=== PATIENT | female | born 1975 | race Caucasian/White ===

== ENCOUNTER 2016-12-03 08:08 | Emergency (ER) | payer BC ==
[~2016-12-03] VITALS: Wt 73.5 kg
[~2016-12-03 08:08] MED LIST: HYDR-3498 PO; IBUP-1542 PO; IBUP200C11 PO; ZOF8 PO
[2016-12-03] MEDS ORDERED: IBUPROFEN 600 MG TAB PO ONE (09:00)
--- NOTE | 2016-12-03 09:38 | RADRPT ---
PROCEDURE: XR right ankle. CLINICAL INDICATION: Ankle pain TECHNIQUE: Three views are available for review. COMPARISON: None available FINDINGS: There is a 6 mm inferior calcaneal spur. The osseous structures are otherwise normal mineralization, architecture and alignment. No fracture or osseous lesion is identified. The joints are unremarkable. The soft tissues are unremarkable. IMPRESSION: 6 mm inferior calcaneal spur. RPTAT: HGDB .Efren Amador MD, Date Time Electronically viewed and signed by .Efren Amador MD, on 12/03/2016 09:37 .B/
[2016-12-03] MEDS ORDERED: NAPR-260 PO (09:48)
--- NOTE | 2016-12-03 10:35 | ERD ---
ER Documentation Chief Complaint Date/Time DATE: 12/03/16 TIME: 10:34 Chief Complaint right ankle pain non trauma, no bruising no deformity HPI 40-year-old female complains of right anterior medial ankle pain for the past week, after going to [place]. Patient states that she has had a fracture in her left ankle just wanted to be sure and is wanting x-rays at this time. She does not have any pain unless she moves the ankle, or weight-bear as numbness, pain is nonradiating, mild to moderate. ROS All systems reviewed and are negative except as per history of present illness. Medications Home Meds Active Scripts Naproxen* (Naprosyn*) 500 Mg Tablet, 500 MG PO BID Y for PAIN AND/OR INFLAMMATION, #30 TAB Prov:GUADALUPE GUEVARA PA-C 12/03/16 Ibuprofen* (Motrin*) 600 Mg Tab, 600 MG PO Q6, #30 TAB Prov:GUADALUPE GUEVARA PA-C 06/12/16 Hydrocodone Bit-Acetaminophen* ([place]*) 5-325 Mg Tab, 10 TAB PO Q6 Y for PAIN, # 7 TAB Prov:GUADALUPE GUEVARA PA-C 06/12/16 Hydrocodone Bit-Acetaminophen* ([place]*) 5-325 Mg Tab, 1 TAB PO Q6 Y for PAIN, # 20 TAB Prov:HARRISON BEATTY NP 05/28/16 Ondansetron Hcl* (Zofran* ODT) 8 mg -ODT Tab.disper, 8 MG PO Q6 Y for NAUSEA AND /OR VOMITING, #14 TAB or tabs ok Prov:KATLYN REED MD 04/14/15 Reported Medications Ibuprofen* (Advil*) 200 Mg Capsule, 200 MG PO Q6H Y for PAIN, CAP 02/13/15 Allergies Allergies: Coded Allergies: No Known Allergies (Verified Allergy, Mild, 11/12/12) PMhx/Soc History of Surgery: Yes (BILAT TUBULAGATION) Anesthesia Reaction: No Hx Neurological Disorder: Yes (MIGRAINES ) Hx Respiratory Disorders: No Hx Cardiac Disorders: No Hx Psychiatric Problems: Yes (ANXIETY ) Hx Miscellaneous Medical Probl: Yes (HIGH CHOLESTEROL, PRE DM) Hx Alcohol Use: No Hx Substance Use: No Hx Tobacco Use: No Smoking Status: Never smoker Physical Exam Vitals Vital Signs Date Time Temp Pulse Resp B/P Pulse Ox O2 Delivery O2 Flow Rate FiO2 12/03/16 08:18 98.1 87 21 137/84 98 Physical Exam \General: Well-developed, well-nourished. The patient appears in no acute distress. HEENT: Head is normocephalic, atraumatic. No scleral icterus. Neck: Supple. Nontender. Lungs: Clear to auscultation. Normal air movement. Heart: Regular rate and rhythm. S1 and S2 are normal. No murmurs, gallops, or rubs. Abdomen: Nondistended. Extremities: No bony deformities, no ecchymosis, pulses 2+ bilaterally, no erythema, warmth. Neurologic: Alert and oriented 3. No focal deficits. Skin: Normal turgor. No rash or lesions. Results 24 hrs Current Medications Medications (Trade) Dose Ordered Sig/Keny Route PRN Reason Start Time Stop Time Status Last Admin Dose Admin Ibuprofen (Motrin) 600 mg ONCE ONCE PO 12/03/16 09:00 12/03/16 09:01 DC 12/03/16 09:03 PROCEDURE: XR right ankle. CLINICAL INDICATION: Ankle pain TECHNIQUE: Three views are available for review. COMPARISON: None available FINDINGS: There is a 6 mm inferior calcaneal spur. The osseous structures are otherwise normal mineralization, architecture and alignment. No fracture or osseous lesion is identified. The joints are unremarkable. The soft tissues are unremarkable. IMPRESSION: 6 mm inferior calcaneal spur. RPTAT: HGDB .Efren Amador MD, Date Time Electronically viewed and signed by .Efren Amador MD, on 12/03/2016 09:37 .B/ CC: GUADALUPE UGEVARA PA-C Procedures/MDM ED course: Patient was given Motrin for pain. Right ankle was wrapped in Napoleon bandage. Splint Assessment: Neurovascularly intact post splint placement with good fit. MDM: 38-year-old female comes in with a right ankle sprain. No evidence of fracture, subluxation, evidence of infectious origin or neurovascular compromise. Departure Diagnosis: Primary Impression: Ankle pain Condition: Good Patient Instructions: Sprain, Ankle, With X-Ray GUADALUPE GUEVARA PA-C Dec 03, 2016 10:35
== END 2016-12-03 10:01 | disposition home or self-care (01) ==
LOC: FTE 08:08
DX: M25.571 Pain in right ankle and joints of right foot (principal)
CPT/HCPCS: 73610; 99283; Z7610

== ENCOUNTER 2017-04-24 08:01 | Emergency (ER) | payer BC ==
[~2017-04-24] VITALS: Ht 144.8 cm; Wt 79.0 kg
[~2017-04-24 08:01] MED LIST changes: +NAPR-260 PO
[2017-04-24 08:08] VITALS: Ht 144.8 cm; Wt 79.0 kg
--- NOTE | 2017-04-24 10:00 | RADRPT ---
PROCEDURE: Right hip series CLINICAL INDICATION: hip injury TECHNIQUE: AP and frog lateral views of the right hip were performed. COMPARISON: None. FINDINGS: There is no evidence of acute fractures or dislocations. The bony mineralization is normal. No foc al bony blastic or lytic lesions. There are vascular calcifications present. IMPRESSION: No evidence of fracture or dislocation. RPTAT:AAJJ Physician Holli Date Time Electronically viewed and signed by Alfa Galeano Physician on 04/24/2017 10:00 /
[2017-04-24] MEDS ORDERED: IBUP-1542 PO (10:54)
[2017-04-24 11:51] VITALS: BP 138/77; PULSE 80; RESP 16; TEMP 98.3
--- NOTE | 2017-04-24 17:52 | ERD ---
ER Documentation Chief Complaint Date/Time DATE: 04/24/17 TIME: 17:48 Chief Complaint BIB SELF C/O LOWER BACK PAIN PAIN R LEG S/P SLIP AND FALL ON SUNDAY HPI 41-year-old female patient with no significant past medical history presents to the ED complaining of a accidental slip and fall that occurred 3 days ago. Patient reports that she was on a skateboard and accidentally tripped and fell injuring her lower back and right hip area. States that the pain feels achy and rates it a 7 out of 10. Reports that she landed on her buttocks. Denies any saddle anesthesia, urine or bowel incontinence, urinary retention, fever, chills, abdominal pain, nausea, vomiting, chest pain, shortness of breath. Denies any head or neck injuries. Denies any loss of consciousness. ROS All systems reviewed and are negative except as per history of present illness. Medications Home Meds Active Scripts Ibuprofen* (Motrin*) 600 Mg Tab, 600 MG PO Q6, #30 TAB Prov:JOSE HOWARD PA-C 04/24/17 Naproxen* (Naprosyn*) 500 Mg Tablet, 500 MG PO BID Y for PAIN AND/OR INFLAMMATION, #30 TAB Prov:GUADALUPE GUEVARA PA-C 12/03/16 Ibuprofen* (Motrin*) 600 Mg Tab, 600 MG PO Q6, #30 TAB Prov:GUADALUPE GUEVARA PA-C 06/12/16 Hydrocodone Bit-Acetaminophen* ([place]*) 5-325 Mg Tab, 10 TAB PO Q6 Y for PAIN, # 7 TAB Prov:GUADALUPE GUEVARA PA-C 06/12/16 Hydrocodone Bit-Acetaminophen* ([place]*) 5-325 Mg Tab, 1 TAB PO Q6 Y for PAIN, # 20 TAB Prov:HARRISON BEATTY NP 05/28/16 Ondansetron Hcl* (Zofran* ODT) 8 mg -ODT Tab.disper, 8 MG PO Q6 Y for NAUSEA AND /OR VOMITING, #14 TAB or tabs ok Prov:KATLYN REED MD 04/14/15 Reported Medications Ibuprofen* (Advil*) 200 Mg Capsule, 200 MG PO Q6H Y for PAIN, CAP 02/13/15 Allergies Allergies: Coded Allergies: No Known Allergies (Verified Allergy, Mild, 04/24/17) PMhx/Soc History of Surgery: Yes (BILAT TUBULAGATION) Anesthesia Reaction: No Hx Neurological Disorder: Yes (MIGRAINES ) Hx Respiratory Disorders: No Hx Cardiac Disorders: No Hx Psychiatric Problems: Yes (ANXIETY ) Hx Miscellaneous Medical Probl: Yes (HIGH CHOLESTEROL, PRE DM) Hx Alcohol Use: No Hx Substance Use: No Hx Tobacco Use: No Smoking Status: Never smoker Physical Exam Vitals Vital Signs Date Time Temp Pulse Resp B/P Pulse Ox O2 Delivery O2 Flow Rate FiO2 04/24/17 11:51 98.3 80 16 138/77 98 Room Air 04/24/17 08:08 96.6 94 18 137/76 98 Physical Exam Const: [id number], well-nourished. In no acute distress. Head: Atraumatic, normocephalic Eyes: Normal Conjunctiva without injection. No purulent discharge. PERRLA. EOMI ENT: Normal external ear. Ear canal without erythema. Tympanic membrane pearly rincon without effusion or bulging. Nasal canal clear with normal turbinates. Moist oropharynx without tonsillar exudates. Non-erythematous pharynx. Uvula midline. No drooling. No trismus. Neck: No cervical midline tenderness. Full range of motion. No meningismus. No cervical lymphadenopathy. No JVD. Resp: Clear to auscultation bilaterally. No wheezing, rhonchi, rales, or crackles. No accessory muscle use. No retractions. Cardio: Regular rate and rhythm. No murmurs, rubs or gallops. Abd: Soft, non tender, non distended. Normal bowel sounds. No palpable masses. No rebound tenderness. No guarding. Negative McBurney's Point. Negative Rhodes's Sign. Skin: Normal skin turgor. No petechiae or rashes Back: No midline tenderness. No CVA tenderness. Ext: No cyanosis, or edema. Distal pulses intact bilaterally. Right hip pain. Patient was able to internally and externally rotate right hip. All other extremities have full range of motion. Neur: Awake and alert. Normal gait. Normal coordination. Cranial Nerves II- VII intact. Normal finger to nose. Muscle strength 5/5. Sensation intact. Psych: Normal Mood and Affect Procedures/MDM 41-year-old female patient with no significant past medical history presents the ED complaining of a back injury after skateboarding 3 days ago. Patient is afebrile and nontoxic-appearing. Patient has normal vital signs. Patient had no lumbar midline tenderness, therefore there is no need for a lumbar x-ray. Patient did however state that her right hip was painful and had tenderness to palpation as well as pain with internal and external rotation. Patient was given Toradol here in the ED with improvement of her symptoms. Negative urine . PROCEDURE: Right hip series CLINICAL INDICATION: hip injury TECHNIQUE: AP and frog lateral views of the right hip were performed. COMPARISON: None. FINDINGS: There is no evidence of acute fractures or dislocations. The bony mineralization is normal. No focal bony blastic or lytic lesions. There are vascular calcifications present. IMPRESSION: No evidence of fracture or dislocation. Patient is ambulating here in the ED without difficulty. Denies saddle anesthesia, numbness or tingling, urine or bowel incontinence, weakness. Low suspicion for cauda equina syndrome, cord compression, nephrolithiasis, aortic aneurysm, aortic dissection, epidural abscess, spinal hematoma, malignancy, pyelonephritis, or other emergent conditions. Discharge medications: Ibuprofen Follow up with primary care physician in 1-2 days. Instructed patient to return to the ED sooner for any worsening symptoms. Patient's questions were answered. Patient understood and agreed with discharge plan. Patient discharged stable. Departure Diagnosis: Primary Impression: Fall Encounter type: initial encounter Qualified Code: W19.XXXA - Fall, initial encounter Condition: Stable Patient Instructions: Back Pain (Acute Or Chronic), Fall, Mechanical, Hip Contusion Referrals: [facility] YOU HAVE RECEIVED A MEDICAL SCREENING EXAM AND THE RESULTS INDICATE THAT YOU DO NOT HAVE A CONDITION THAT REQUIRES URGENT TREATMENT IN THE EMERGENCY DEPARTMENT. FURTHER EVALUATION AND TREATMENT OF YOUR CONDITION CAN WAIT UNTIL YOU ARE SEEN IN YOUR DOCTORS OFFICE WITHIN THE NEXT 1-2 DAYS. IT IS YOUR RESPONSIBILITY TO MAKE AN APPOINTMENT FOR FOLOW-UP CARE. IF YOU HAVE A PRIMARY DOCTOR --you should call your primary doctor and schedule an appointment IF YOU DO NOT HAVE A PRIMARY DOCTOR YOU CAN CALL OUR PHYSICIAN REFERRAL HOTLINE AT IF YOU CAN NOT AFFORD TO SEE A PHYSICIAN YOU CAN CHOSE FROM THE FOLLOWING [facility] [address]. [facility] [address] [facility] [address] [facility] [address] [facility] [address] [facility]. [facility] [address] [facility]. [facility] YOU HAVE RECEIVED A MEDICAL SCREENING EXAM AND THE RESULTS INDICATE THAT YOU DO NOT HAVE A CONDITION THAT REQUIRES URGENT TREATMENT IN THE EMERGENCY DEPARTMENT. FURTHER EVALUATION AND TREATMENT OF YOUR CONDITION CAN WAIT UNTIL YOU ARE SEEN IN YOUR DOCTORS OFFICE WITHIN THE NEXT 1-2 DAYS. IT IS YOUR RESPONSIBILITY TO MAKE AN APPOINTMENT FOR FOLOW-UP CARE. IF YOU HAVE A PRIMARY DOCTOR --you should call your primary doctor and schedule and appointment IF YOU DO NOT HAVE A PRIMARY DOCTOR YOU CAN CALL OUR PHYSICIAN REFERRAL HOTLINE AT . IF YOU CAN NOT AFFORD TO SEE A PHYSICIAN YOU CAN CHOSE FROM THE FOLLOWING [facility] INSTITUTIONS: [facility] [address] [place] [address] [facility] [address] [place] [address] [facility] [address] [place] [address] [facility] URGENT CARE/SPECIALTIES Additional Instructions: Call your primary care doctor TOMORROW for an appointment during the next 2-3 days.See the doctor sooner or return here if your condition worsens before your appointment time. JOSE HOWARD PA-C Apr 24, 2017 17:52
== END 2017-04-24 11:53 | disposition home or self-care (01) ==
LOC: FTE 08:01
DX: S39.92XA Unspecified injury of lower back, initial encounter (principal); S89.91XA Unspecified injury of right lower leg, initial encounter; S79.911A Unspecified injury of right hip, initial encounter; W01.0XXA Fall on same level from slipping, tripping and stumbling without subsequent striking against object, initial encounter; Y92.9 Unspecified place or not applicable
CPT/HCPCS: 73510

== ENCOUNTER 2017-05-20 19:44 | Emergency (ER) | payer BC ==
[~2017-05-20] VITALS: Ht 144.8 cm; Wt 79.0 kg
[2017-05-20 19:48] VITALS: Ht 144.8 cm; Wt 79.0 kg
[2017-05-20] MEDS ORDERED: HYDROCODONE/APAP (5/325) TAB PO ONE (20:30)
[2017-05-20 21:21] LABS: ADD SCAN DIFF NO
[2017-05-20 21:28] LABS: HEMATOCRIT 38.3 % (37.0-47.0); HEMOGLOBIN 12.6 g/dl (12.0-16.0); MEAN CORPUSCULAR HEMOGLOBIN 28.1 pg (29.0-33.0); MEAN CORPUSCULAR HGB CONC 32.9 g/dl (32.0-37.0); MEAN CORPUSCULAR VOLUME 85.5 fl (82.0-101.0); MEAN PLATELET VOLUME 9.9 fl (7.4-10.4); PLATELET COUNT 377 10^3/UL (140-415); RED BLOOD COUNT 4.48 10^6/ul (4.20-5.40); WHITE BLOOD COUNT 11.8 10^3/ul (4.8-10.8)
--- NOTE | 2017-05-20 21:28 | ERD ---
ER Documentation Chief Complaint Date/Time DATE: 05/20/17 TIME: 21:25 Chief Complaint PT REPORTS SHE GOT HER PERIOD AFTER A YEAR AND IS HAVING AP & BACK PAIN HPI This is a 41-year-old female presents to the ER stating that she got her period after 1 year of not having her period. Patient states that she has had heavy bleeding and severe pelvic pain with lower back pain for the last 3 days. Patient denies any vaginal discharge, she denies any urinary frequency or dysuria. Patient denies any trauma to the back. She denies any urinary bowel incontinence. She denies any saddle like anesthesia. Patient denies any other abdominal pain. She denies any nausea vomiting or diarrhea. Pelvic pain is severe, and crampy in nature. Patient has been taking ibuprofen for the pain however it has not helped her. ROS 12 point review of systems was done, all negative except per HPI. Medications Home Meds Active Scripts Hydrocodone/Acetaminophen ([place] 5-325 Tablet) 1 Each Tablet, 1 TAB PO Q6H Y for PAIN, #20 TAB Prov:VIET VELOZ 05/20/17 Ibuprofen* (Motrin*) 600 Mg Tab, 600 MG PO Q6, #30 TAB Prov:JOSE HOWARD PA-C 04/24/17 Naproxen* (Naprosyn*) 500 Mg Tablet, 500 MG PO BID Y for PAIN AND/OR INFLAMMATION, #30 TAB Prov:GUADALUPE GUEVARA PA-C 12/03/16 Ibuprofen* (Motrin*) 600 Mg Tab, 600 MG PO Q6, #30 TAB Prov:GUADALUPE GUEVARA PA-C 06/12/16 Hydrocodone Bit-Acetaminophen* ([place]*) 5-325 Mg Tab, 10 TAB PO Q6 Y for PAIN, # 7 TAB Prov:GUADALUPE GUEVARA PA-C 06/12/16 Hydrocodone Bit-Acetaminophen* ([place]*) 5-325 Mg Tab, 1 TAB PO Q6 Y for PAIN, # 20 TAB Prov:HARRISON BEATTY NP 05/28/16 Ondansetron Hcl* (Zofran* ODT) 8 mg -ODT Tab.disper, 8 MG PO Q6 Y for NAUSEA AND /OR VOMITING, #14 TAB or tabs ok Prov:KATLYN REED MD 04/14/15 Reported Medications Ibuprofen* (Advil*) 200 Mg Capsule, 200 MG PO Q6H Y for PAIN, CAP 02/13/15 Allergies Allergies: Coded Allergies: No Known Allergies (Verified Allergy, Mild, 04/24/17) PMhx/Soc History of Surgery: Yes (BILAT TUBULAGATION) Anesthesia Reaction: No Hx Neurological Disorder: Yes (MIGRAINES ) Hx Respiratory Disorders: No Hx Cardiac Disorders: No Hx Psychiatric Problems: Yes (ANXIETY ) Hx Miscellaneous Medical Probl: Yes (HIGH CHOLESTEROL, PRE DM) Hx Alcohol Use: No Hx Substance Use: No Hx Tobacco Use: No Smoking Status: Never smoker Physical Exam Vitals Vital Signs Date Time Temp Pulse Resp B/P Pulse Ox O2 Delivery O2 Flow Rate FiO2 05/20/17 19:48 98.7 88 16 123/83 95 Physical Exam GENERAL: The patient is well developed and appropriate for usual state of health , in no apparent distress. HEENT: Atraumatic. CHEST: Clear to auscultation bilaterally. There are no rales, wheezes or rhonchi. HEART: Regular rate and rhythm. No murmurs, clicks, rubs or gallops. ABDOMEN: Soft, nontender and nondistended. Good bowel sounds. No rebound or guarding. No gross peritonitis. No gross organomegaly or masses. No Rhodes sign or McBurney point tenderness. patient is ttp over the pelvic area. BACK: No midline or flank tenderness. NEURO: Alert and oriented. SKIN: The skin is warm and dry. Result Diagram: 05/20/17203905/20/172039 Results 24 hrs Laboratory Tests Test 05/20/17 20:40 White Blood Count 11.810^3/ul Red Blood Count 4.4810^6/ul Hemoglobin 12.6g/dl Hematocrit 38.3% Mean Corpuscular Volume 85.5fl Mean Corpuscular Hemoglobin 28.1pg Mean Corpuscular Hemoglobin Concent 32.9g/dl Red Cell Distribution Width 13.0% Platelet Count 73075^3/UL Mean Platelet Volume 9.9fl Neutrophils % 41.0% Lymphocytes % 51.0% Monocytes % 5.0% Eosinophils % 3.0% Neutrophils # 4.810^3/ul Lymphocytes # 6.010^3/ul Monocytes # 0.610^3/ul Eosinophils # 0.410^3/ul Urine Color RED Urine Clarity CLOUDY Urine pH 6.0 Urine Specific Ariel 1.022 Urine Ketones NEGATIVEmg/dL Urine Nitrite NEGATIVEmg/dL Urine Bilirubin NEGATIVEmg/dL Urine Urobilinogen NEGATIVEmg/dL Urine Leukocyte Esterase TRACELeu/ul Urine Microscopic RBC > 182/HPF Urine Microscopic WBC 36/HPF Urine Hemoglobin 3+mg/dL Urine Glucose 3+mg/dL Urine Total Protein 2+mg/dl Sodium Level 139mmol/L Potassium Level 4.0mmol/L Chloride Level 101mmol/L Carbon Dioxide Level 23mmol/L Anion Gap 19 Blood Urea Nitrogen 13mg/dl Creatinine 0.67mg/dl Glucose Level 238mg/dl Calcium Level 9.5mg/dl Total Bilirubin 0.0mg/dl Direct Bilirubin 0.00mg/dl Indirect Bilirubin 0.0mg/dl Aspartate Amino Transf (AST/SGOT) 27IU/L Alanine Aminotransferase (ALT/SGPT) 36IU/L Alkaline Phosphatase 143IU/L Total Protein 8.5g/dl Albumin 4.6g/dl Globulin 3.90g/dl Albumin/Globulin Ratio 1.17 Current Medications Medications (Trade) Dose Ordered Sig/Keny Route PRN Reason Start Time Stop Time Status Last Admin Dose Admin Acetaminophen/ Hydrocodone Bitart ([place] (5/325)) 1 tab ONCE ONCE PO 05/20/17 20:30 05/20/17 20:31 DC 05/20/17 20:49 Procedures/MDM This is a 41-year-old female presents to the ER with heavy. And pelvic with back pain. At this time etiology of vaginal bleeding is unknown. Patient however was advised to see her OB as she has not had a period for a year, this could be postmenopausal bleeding at which point malignancy cannot be ruled out. There is no evidence of ovarian torsion or ovarian cysts. Patient is hemodynamically stable with no evidence of anemia. Suspicion for PID is low as patient does not have any vaginal discharge. Patient will be sent home with [place]. She is to follow-up with her primary care doctor within 1-2 days return to ER sooner if symptoms worsen. My medical decision making sure with the patient understands and agrees with plan. Patient's blood sugar was elevated, discussed this finding with patient and advised her to get follow-up to rule out diabetes. Departure Diagnosis: Primary Impression: Vaginal bleeding Condition: Stable VIET VELOZ May 20, 2017 21:28
--- NOTE | 2017-05-20 21:29 | RADRPT ---
PROCEDURE: US Pelvis. CLINICAL INDICATION: Abnormal vaginal bleeding. TECHNIQUE: The pelvis was evaluated with transabdominal and transvaginal sonography in the axial a nd sagittal planes. COMPARISON: No prior study is available for comparison. FINDINGS: Uterus: 8.4 x 6.0 x 2.5 cm. Endometrium: 5.1 mm. Right ovary: 2.5 x 1.7 x 2.1 cm. Left ovary: 3.1 x 2.0 x 2.7 cm. Uterine masses: None. Ovarian masses: None. Color Doppler and pulsed Doppler sonography demonstrate normal flow to the ova chelsey. Other pelvic masses: None. Free fluid: None. IMPRESSION: 1. Normal pelvic ultrasound. RPTAT: QQ .Maldonado Jimenez MD, MD Date Time Electronically viewed and signed by .Maldonado Jimenez MD, on 05/20/2017 21:29 .R/
[2017-05-20 21:39] LABS: ADD UMIC YES; UR ASCORBIC ACID NEGATIVE (NEGATIVE); UR BILIRUBIN (Dip) NEGATIVE (NEGATIVE); UR BLOOD (Dip) 3+ mg/dL (NEGATIVE); UR CLARITY CLOUDY (CLEAR); UR COLOR RED (YELLOW); UR GLUCOSE (Dip) 3+ mg/dL (NEGATIVE); UR KETONES (Dip) NEGATIVE (NEGATIVE); UR LEUKOCYTE ESTERASE (Dip) TRACE Leu/ul (NEGATIVE); UR NITRITE (Dip) NEGATIVE (NEGATIVE); UR RBC > 182 /HPF (0-5); UR SPECIFIC GRAVITY (Dip) 1.022 (1.003-1.030); UR TOTAL PROTEIN (Dip) 2+ mg/dl (NEGATIVE); UR UROBILINOGEN (Dip) NEGATIVE (NEGATIVE)
[2017-05-20 21:51] LABS: ALBUMIN 4.6 g/dl (3.3-4.9); ALBUMIN/GLOBULIN RATIO 1.17; CALCIUM 9.5 mg/dl (8.4-10.2); CREATININE 0.67 mg/dl (0.44-1.00); TOTAL PROTEIN 8.5 g/dl (6.1-8.1)
[2017-05-20 21:54] LABS: EOSINOPHILS # 0.4 10^3/ul (0.0-0.5); MONOCYTE # 0.6 10^3/ul (0.3-0.9); NEUTROPHIL # 4.8 10^3/ul (1.6-7.5)
--- NOTE | 2017-05-20 22:14 | RADRPT ---
PROCEDURE: XR Lumbar Spine. CLINICAL INDICATION: Back pain. TECHNIQUE: Three views. AP, lateral and cone-down lateral view of the lumbar spine were obtained. COMPARISON: No prior studies are available for comparison. FINDINGS: There is normal stature and alignment of the vertebrae. There is no fracture. There is no lytic or blastic lesion. The disk height is normal. Small osteophytes are present throughout. The paravertebral soft tissues are unremarkable. IMPRESSION: 1. Mild degenerative change. 2. Otherwise unremarkable images of the lumbar spine. RPTAT: QQ .Maldonado Jimenez MD, MD Date Time Electronically viewed and signed by .Maldonado Jimenez MD, on 05/20/2017 22:14 .R/
[2017-05-20] MEDS ORDERED: HYDR-906 PO (22:17)
[2017-05-20 22:30] VITALS: BP 137/88; PULSE 83; RESP 20
== END 2017-05-20 22:31 | disposition home or self-care (01) ==
LOC: FTE 19:44
DX: N93.9 Abnormal uterine and vaginal bleeding, unspecified (principal); R10.2 Pelvic and perineal pain
CPT/HCPCS: 72100; 76856; 80053; 81001; 85025; 99285; Z7610

== ENCOUNTER 2017-06-26 13:15 | Emergency (ER) | payer BC ==
[~2017-06-26] VITALS: Ht 152.4 cm; Wt 78.5 kg
[~2017-06-26 13:15] MED LIST changes: +HYDR-906 PO
[2017-06-26 13:23] VITALS: Ht 152.4 cm; Wt 78.5 kg
--- NOTE | 2017-06-26 14:19 | ERA ---
ER Documentation Chief Complaint Date/Time DATE: 06/26/17 TIME: 14:18 Chief Complaint FEELS DIZZY SINCE SUNDAY HPI The patient is a 41-year-old female, presenting to the ER because of acute dizziness, nausea and vomiting mostly mucus for 3 days. She recently increased her metformin 500 mg twice daily for the last 4 days, denies syncope, near syncope, vertigo, neck pain, chest pain, dyspnea, abdominal pain. She does not smoke nor drink Past medical history: Migraine, anxiety, dyslipidemia, diabetes mellitus Past surgical history: Tubal ligation ROS All systems reviewed and are negative except as per history of present illness. Medications Home Meds Active Scripts Meclizine Hcl* (Meclizine Hcl*) 25 Mg Tablet, 25 MG PO TID, #14 TAB Prov:DRU BLEVINS MD 06/26/17 Sulfamethoxazole/Trimethoprim* (Bactrim Ds* Tablet) 1 Each Tablet, 1 TAB PO BID , #14 TAB Prov:DRU BLEVINS MD 06/26/17 Hydrocodone/Acetaminophen ([place] 5-325 Tablet) 1 Each Tablet, 1 TAB PO Q6H Y for PAIN, #20 TAB Prov:VIET VELOZ 05/20/17 Ibuprofen* (Motrin*) 600 Mg Tab, 600 MG PO Q6, #30 TAB Prov:JOSE HOWARD PA-C 04/24/17 Naproxen* (Naprosyn*) 500 Mg Tablet, 500 MG PO BID Y for PAIN AND/OR INFLAMMATION, #30 TAB Prov:GUADALUPE GUEVARA PA-C 12/03/16 Ibuprofen* (Motrin*) 600 Mg Tab, 600 MG PO Q6, #30 TAB Prov:GUADALUPE GUEVARA PA-C 06/12/16 Hydrocodone Bit-Acetaminophen* ([place]*) 5-325 Mg Tab, 10 TAB PO Q6 Y for PAIN, # 7 TAB Prov:GUADALUPE GUEVARA PA-C 06/12/16 Hydrocodone Bit-Acetaminophen* ([place]*) 5-325 Mg Tab, 1 TAB PO Q6 Y for PAIN, # 20 TAB Prov:HARRISON BEATTY NP 05/28/16 Ondansetron Hcl* (Zofran* ODT) 8 mg -ODT Tab.disper, 8 MG PO Q6 Y for NAUSEA AND /OR VOMITING, #14 TAB or tabs ok Prov:KATLYN REED MD 04/14/15 Reported Medications Ibuprofen* (Advil*) 200 Mg Capsule, 200 MG PO Q6H Y for PAIN, CAP 02/13/15 Allergies Allergies: Coded Allergies: No Known Allergies (Verified Allergy, Mild, 04/24/17) PMhx/Soc History of Surgery: Yes (BILAT TUBULAGATION) Anesthesia Reaction: No Hx Neurological Disorder: Yes (MIGRAINES ) Hx Respiratory Disorders: No Hx Cardiac Disorders: No Hx Psychiatric Problems: Yes (ANXIETY ) Hx Miscellaneous Medical Probl: Yes (HIGH CHOLESTEROL, PRE DM) Hx Alcohol Use: No Hx Substance Use: No Hx Tobacco Use: No Physical Exam Vitals Vital Signs Date Time Temp Pulse Resp B/P Pulse Ox O2 Delivery O2 Flow Rate FiO2 06/26/17 13:23 98.1 86 18 142/83 99 Physical Exam Const: No acute distress. Head: Atraumatic. Eyes: Normal Conjunctiva. ENT: Normal External Ears, Nose and Mouth. Neck: Full range of motion. No meningismus. Resp: Clear to auscultation bilaterally. Cardio: Regular rate and rhythm. Abd: Soft, non distended, normal bowel sounds, non tender. Skin: No petechiae or rashes. Back: No midline or flank tenderness. Ext: No cyanosis, or edema. Neur: Awake and alert. No focal deficit Psych: Normal Mood and Affect. Results 24 hrs Laboratory Tests Test 06/26/17 14:45 06/26/17 15:39 Bedside Urine pH (LAB) 5.5 Bedside Urine Protein (LAB) Negative Bedside Urine Glucose (UA) 0.25% Bedside Urine Ketones (LAB) Negative Bedside Urine Blood Trace-lysed Bedside Urine Nitrite (LAB) Negative Bedside Urine Leukocyte Esterase (L 2+ Bedside Glucose 126mg/dL Current Medications Medications (Trade) Dose Ordered Sig/Keny Route PRN Reason Start Time Stop Time Status Last Admin Dose Admin Ondansetron HCl (Zofran Odt) 4 mg ONCE STAT ODT 06/26/17 14:26 06/26/17 14:28 DC 06/26/17 14:44 Meclizine HCl (Antivert) 25 mg ONCE ONCE PO 06/26/17 14:30 06/26/17 14:31 DC 06/26/17 14:45 Procedures/MDM EKG: Read by emergency physician Rate/Rhythm: Normal Sinus Rhythm 86 beats/min QRS, ST, T-waves: No ST elevation, no T inversion, low voltage Impression: Abnormal EKG MEDICAL MAKING DECISION: The patient is a 41-year-old female, presenting with acute cystitis, acute dizziness of unclear etiology. Accu-Chek was 126. She was treated with Zofran ODT for now sent Antivert for dizziness with good response The differential diagnoses considered include but are not limited to central causes such as cerebellar infarct, cerebellar hemorrhage, cerebellar tumor, acoustic neuroma, peripheral causes such as benign positional vertigo, labyrinthitis, medication, Meniere's disease. Departure Diagnosis: Primary Impression: Dizziness Additional Impression: UTI (urinary tract infection) Condition: Good Comments She was discharged with Bactrim DS and Antivert I discussed the findings with the patient. I advised the patient to follow-up with the primary physician in about 1-2 days, sooner if needed and return if any concern. The patient's blood pressure was elevated (>120/80) but appears stable without evidence of hypertension emergency or urgency. The patient was counseled about the risks of hypertension and urged to pursue outpatient monitoring and therapy within a week with their primary care physician. DRU BLEVINS MD Jun 26, 2017 14:19
[2017-06-26] MEDS ORDERED: ONDANSETRON (ODT) 4 MG TAB ODT STA (14:26)
[2017-06-26] MEDS ORDERED: MECLIZINE 12.5 MG TAB PO ONE (14:30)
[2017-06-26 14:39] LABS: URINE BLOOD (Dip) POC Trace-lysed (NEGATIVE)
[2017-06-26] MEDS ORDERED: MECL-77 PO (15:49)
[2017-06-26] MEDS ORDERED: SULF1TAB31 PO (15:49)
== END 2017-06-26 16:05 | disposition home or self-care (01) ==
LOC: FTE 13:15
DX: R42 Dizziness and giddiness (principal); N39.0 Urinary tract infection, site not specified; E11.9 Type 2 diabetes mellitus without complications
CPT/HCPCS: 81003; 82962; 93005; 99283; Z7610

== ENCOUNTER 2017-08-22 13:28 | Emergency (ER) | payer SELFPAY ==
[~2017-08-22] VITALS: Wt 86.4 kg
[~2017-08-22 13:28] MED LIST changes: +MECL-77 PO; +SULF1TAB31 PO
== END 2017-08-22 20:29 | disposition left against medical advice (07) ==
LOC: FTE 13:28
DX: Z53.21 Procedure and treatment not carried out due to patient leaving prior to being seen by health care provider (principal)

== ENCOUNTER 2018-02-13 14:37 | Emergency (ER) | END 2018-02-13 17:00 | disposition home or self-care (01) ==

== ENCOUNTER 2018-04-12 09:33 | Emergency (ER) | END 2018-04-12 11:04 | disposition home or self-care (01) ==

== ENCOUNTER 2018-05-09 17:07 | Emergency (ER) | END 2018-05-09 23:07 | disposition home or self-care (01) ==

== ENCOUNTER 2018-07-19 14:52 | Emergency (ER) | END 2018-07-19 17:15 | disposition home or self-care (01) ==

== ENCOUNTER 2018-08-30 08:32 | Emergency (ER) | END 2018-08-30 11:02 | disposition home or self-care (01) ==

== ENCOUNTER 2018-11-13 15:24 | Emergency (ER) | payer BC ==
[~2018-11-13] VITALS: Ht 154.9 cm; Wt 80.5 kg
[~2018-11-13 15:24] MED LIST changes: +ATOR40TA68 PO; +CHOL200056 PO; -HYDR-3498 PO; -HYDR-906 PO; -IBUP-1542 PO; -IBUP200C11 PO; +LISI10TA2 PO; +MTF1000T PO; -NAPR-260 PO; -SULF1TAB31 PO; -ZOF8 PO
[2018-11-13 15:33] VITALS: BP 135/81; PULSE 96; RESP 18; Ht 154.9 cm; Wt 80.5 kg
[2018-11-13] MEDS ORDERED: IBUP800T48 PO (16:21)
[2018-11-13] MEDS ORDERED: IBUPROFEN 800 MG TAB PO ONE (16:30)
--- NOTE | 2018-11-13 18:10 | ERD ---
ER Documentation Chief Complaint Chief Complaint R-LEG PAIN AFTER CARRYING SOMETHING AT WORK HPI 43-year-old female presenting to right leg. Patient was carrying an item at work and had pain on the lateral aspect of her right posterior calf. Has not taken any medications for pain. Denies any numbness or tingling. Denies any swelling. Denies fever. Denies other medical problems. NKDA. Surgical history denies. Social history denies ROS All systems reviewed and are negative except as per history of present illness. Medications Home Meds Active Scripts Ibuprofen* (Motrin*) 800 Mg Tab, 800 MG PO Q6, #30 TAB Prov:MARIVEL HINOJOSA PA-C 11/13/18 Meclizine Hcl* (Meclizine Hcl*) 25 Mg Tablet, 25 MG PO Q8H PRN for DIZZINESS, #20 TAB Prov:WILLIAM ARANGO MD 08/30/18 Reported Medications Cholecalciferol (Vitamin D3) (Vitamin D-3) 2,000 Unit Tablet, 2000 TAB PO DAILY 08/30/18 Metformin* (Glucophage*) 1,000 Mg Tablet, 1000 MG PO BID, #60 TAB 08/30/18 Atorvastatin* (Atorvastatin*) 40 Mg Tablet, 40 MG PO QHS, #30 TAB 08/30/18 Lisinopril* (Lisinopril*) 10 Mg Tablet, 10 MG PO DAILY, #30 TAB 05/09/18 Allergies Allergies: Coded Allergies: No Known Allergies (Verified Allergy, Mild, 11/13/18) PMhx/Soc History of Surgery: Yes (tubal ligation ) Anesthesia Reaction: No Hx Neurological Disorder: Yes (MIGRAINES ) Hx Respiratory Disorders: No Hx Cardiac Disorders: Yes (Hypertension, hyperlipidemia, diabetes) Hx Psychiatric Problems: Yes (ANXIETY ) Hx Miscellaneous Medical Probl: No Hx Alcohol Use: No Hx Substance Use: No Hx Tobacco Use: No Smoking Status: Never smoker FmHx Family History: No diabetes, No coronary disease, No other Physical Exam Vitals Vital Signs Date Temp Pulse Resp B/P (MAP) Pulse Ox O2 O2 Flow FiO2 Time Delivery Rate 11/13/18 98.6 96 18 135/81 97 15:33 (99) Physical Exam GENERAL: The patient is well-appearing, well-nourished, in no acute distress CHEST: Clear to auscultation bilaterally. There are no rales, wheezes or rhonchi. HEART: Regular rate and rhythm. No murmurs, clicks, rubs or gallops. No S3 or S4. EXTREMITIES: Mild tenderness palpation over posterior right lateral thigh. No obvious deformity. No swelling. NEUROLOGIC: Alert and oriented. Cranial nerves II through XII intact. Motor strength in all 4 extremities with 5 out of 5 strength. Sensation grossly int act. Normal speech and gait. Babinski negative. DTR 2+ throughout. SKIN: There is no apparent rash or petechiae. The skin is warm and dry. Results 24 hrs Current Medications Medications Dose Sig/Keny Start Time Status Last (Trade) Ordered Route PRN Stop Time Admin Dose Reason Admin Ibuprofen 800 mg ONCE ONCE 11/13/18 DC 11/13/18 (Motrin) PO 16:30 11/13/18 16:27 16:31 Procedures/MDM MDM: 43-year-old female presenting with knee pain. I have low suspicion for DVT. I have low suspicion for acute fracture dislocation. I have low suspicion for infectious etiology. Patient likely has a strain along the posterior hamstring and is given medication. Patient is recommended to ice and elevate and rest the extremity. Patient is told symptoms change or worsen to return immediately to the ER. All questions answered at discharge Departure Diagnosis: Primary Impression: Pain of right leg Condition: Stable Patient Instructions: Muscle Strain, Extremity Referrals: [facility], [facility] YOU HAVE RECEIVED A MEDICAL SCREENING EXAM AND THE RESULTS INDICATE THAT YOU DO NOT HAVE A CONDITION THAT REQUIRES URGENT TREATMENT IN THE EMERGENCY DEPARTMENT. FURTHER EVALUATION AND TREATMENT OF YOUR CONDITION CAN WAIT UNTIL YOU ARE SEEN IN YOUR DOCTORS OFFICE WITHIN THE NEXT 1-2 DAYS. IT IS YOUR RESPONSIBILITY TO MAKE AN APPOINTMENT FOR FOLOW-UP CARE. IF YOU HAVE A PRIMARY DOCTOR --you should call your primary doctor and schedule an appointment IF YOU DO NOT HAVE A PRIMARY DOCTOR YOU CAN CALL OUR PHYSICIAN REFERRAL HOTLINE AT IF YOU CAN NOT AFFORD TO SEE A PHYSICIAN YOU CAN CHOSE FROM THE FOLLOWING [facility], [facility] [address] [place] [facility] [address] [facility] [address] [facility] [address] [facility]. [facility] [address] [facility]. [facility] [address] Additional Instructions: FOLLOW UP WITH YOUR PRIMARY CARE PHYSICIAN TOMORROW.Return to this facility if you are not improving as expected. MARIVEL HINOJOSA PA-C Nov 13, 2018 18:10
[2018-12-09] MEDS ORDERED: METR70GE15 VAG (14:34)
[2018-12-09] MEDS ORDERED: FLUC150T PO (14:34)
== END 2018-11-13 16:47 | disposition home or self-care (01) ==
LOC: FTE 15:24
DX: M79.604 Pain in right leg (principal); E11.9 Type 2 diabetes mellitus without complications; I10 Essential (primary) hypertension; Z79.84 Long term (current) use of oral hypoglycemic drugs
CPT/HCPCS: Z7502; Z7610; 99282

== ENCOUNTER 2019-02-09 12:18 | Emergency (ER) | payer BC ==
[~2019-02-09] VITALS: Ht 147.3 cm; Wt 79.4 kg
[~2019-02-09 12:18] MED LIST changes: +FLUC150T PO; +IBUP800T48 PO; +METR70GE15 VAG
[2019-02-09 12:37] VITALS: BP 104/59; PULSE 90; RESP 20; Ht 147.3 cm; Wt 79.4 kg
[2019-02-09] MEDS ORDERED: KETOROLAC 60 MG INJ IM STA (12:55)
[2019-02-09] MEDS ORDERED: NAPR-985 PO (14:44)
--- NOTE | 2019-02-09 14:50 | ERD ---
ER Documentation Chief Complaint Chief Complaint c/o neck pain rad to left upper arm x1 week. Denies injury HPI 43-year-old female patient with a past medical history of diabetes presents to ED complaining of left shoulder pain that started about 1 week ago, worse in the last 4 days. States that she is right-handed. States that anytime she moves her left shoulder, it hurts. Describes pain as a sharp sensation and rates a 6 out of 10. Denies any chest pain, shortness of breath, fever, chills, increased redness, increased swelling, headache, dizziness. ROS All systems reviewed and are negative except as per history of present illness. Medications Home Meds Active Scripts Naproxen* (Naprosyn*) 500 Mg Tablet, 500 MG PO BID PRN for PAIN AND/OR INFLAMMATION, #30 TAB Prov:JOSE HOWARD PA-C 02/09/19 Metronidazole* (Metrogel* Vaginal) 0.75% -70 Gram Gel.w.appl, 1 APPFUL VAG HS, #1 TUB Prov:MARIVEL HINOJOSA PA-C 12/09/18 Fluconazole* (Diflucan*) 150 Mg Tablet, 150 MG PO ONCE, #1 TAB Prov:MARIVEL HINOJOSA PA-C 12/09/18 Ibuprofen* (Motrin*) 800 Mg Tab, 800 MG PO Q6, #30 TAB Prov:MARIVEL HINOJOSA PA-C 11/13/18 Meclizine Hcl* (Meclizine Hcl*) 25 Mg Tablet, 25 MG PO Q8H PRN for DIZZINESS, #20 TAB Prov:WILLIAM ARANGO MD 08/30/18 Reported Medications Cholecalciferol (Vitamin D3) (Vitamin D-3) 2,000 Unit Tablet, 2000 TAB PO DAILY 08/30/18 Metformin* (Glucophage*) 1,000 Mg Tablet, 1000 MG PO BID, #60 TAB 08/30/18 Atorvastatin* (Atorvastatin*) 40 Mg Tablet, 40 MG PO QHS, #30 TAB 08/30/18 Lisinopril* (Lisinopril*) 10 Mg Tablet, 10 MG PO DAILY, #30 TAB 05/09/18 Allergies Allergies: Coded Allergies: No Known Allergies (Verified Allergy, Mild, 11/13/18) PMhx/Soc History of Surgery: Yes (tubal ligation ) Anesthesia Reaction: No Hx Neurological Disorder: Yes (MIGRAINES ) Hx Respiratory Disorders: No Hx Cardiac Disorders: Yes (Hypertension, hyperlipidemia, diabetes) Hx Psychiatric Problems: Yes (ANXIETY ) Hx Miscellaneous Medical Probl: No Hx Alcohol Use: No Hx Substance Use: No Hx Tobacco Use: No FmHx Family History: No diabetes, No coronary disease Physical Exam Vitals Vital Signs Date Temp Pulse Resp B/P (MAP) Pulse Ox O2 O2 Flow FiO2 Time Delivery Rate 02/09/19 97.4 90 20 104/59 99 12:37 (74) Physical Exam Const: [id number], well-nourished. In no acute distress. Head: Atraumatic, normocephalic Eyes: Normal Conjunctiva without injection ENT: Normal external ear, nose and mouth. Neck: Full range of motion. No meningismus. Resp: Clear to auscultation bilaterally. No wheezing, rhonchi, rales, or crackles. No accessory muscle use. No retractions. Cardio: Regular rate and rhythm, no murmurs Skin: No petechiae or rashes Back: No midline tenderness. No CVA tenderness. Ext: No cyanosis, or edema. Cap refill less than 2 seconds. Distal pulses intact bilaterally. Limited range of motion of the left shoulder due to pain with flexion, extension however patient was still able to perform this range of motion including internal and external rotation without any difficulty. All other joint spaces full range of motion. Neur: Awake and alert. Normal gait and coordination. Muscle strength 5/5. Sensation intact bilaterally. Psych: Normal Mood and Affect Results 24 hrs Current Medications Medications Dose Sig/Keny Start Time Status Last (Trade) Ordered Route PRN Stop Time Admin Dose Reason Admin Ketorolac 60 mg ONCE STAT 02/09/19 DC 02/09/19 Tromethamine IM 12:55 02/09/19 13:08 (Toradol) 12:57 Procedures/MDM 43-year-old female patient with no significant past medical history presents to ED complaining of left shoulder pain that started 1 week ago. Patient is afebrile and nontoxic-appearing. Urine negative. Patient was given Toradol 60 mg IM here in the ED with improvement of her pain and range of motion. IMPRESSION: No radiographic evidence of acute or aggressive osseous changes in the left shoulder joint. Amorphous calcifications situated along the posterior greater tuberosity, most suspicious for calcific tendonitis along the posterior rotator cuff, with a high likelihood for being source of patient's pain. Differentials include calcific tendinitis of the left shoulder. Patient's extremity symptoms have stabilized while they have been evaluated in the department and are appropriate for outpatient follow up. No evidence of fractures, dislocations, compartment syndrome, neurologic injury, vascular injury, open joint, open fracture, tendon laceration, septic arthritis, osteomyelitis, DVT, foreign body, or other emergent conditions. Diagnosis: Shoulder pain Discharge medications: Naproxen Follow up with primary care physician in 1-2 days physical therapy and referral to an orthopedic physician. Instructed patient to return to the ED sooner for any worsening symptoms. Patient's questions were answered. Patient is hemodynamically stable. Patient understood and agreed with discharge plan. Patient discharged stable. Disclaimer: Inadvertent spelling and grammatical errors are likely due to EHR/dictation software use and do not reflect on the overall quality of patient care. Also, please note that the electronic time recorded on this note does not necessarily reflect the actual time of the patient encounter. Departure Diagnosis: Primary Impression: Shoulder pain Chronicity: unspecified Laterality: unspecified laterality Qualified Codes: M25.519 - Pain in unspecified shoulder Condition: Stable Patient Instructions: Tendonitis, Shoulder Pain (Uncertain Cause) Referrals: [facility] YOU HAVE RECEIVED A MEDICAL SCREENING EXAM AND THE RESULTS INDICATE THAT YOU DO NOT HAVE A CONDITION THAT REQUIRES URGENT TREATMENT IN THE EMERGENCY DEPARTMENT. FURTHER EVALUATION AND TREATMENT OF YOUR CONDITION CAN WAIT UNTIL YOU ARE SEEN IN YOUR DOCTORS OFFICE WITHIN THE NEXT 1-2 DAYS. IT IS YOUR RESPONSIBILITY TO MAKE AN APPOINTMENT FOR FOLOW-UP CARE. IF YOU HAVE A PRIMARY DOCTOR --you should call your primary doctor and schedule an appointment IF YOU DO NOT HAVE A PRIMARY DOCTOR YOU CAN CALL OUR PHYSICIAN REFERRAL HOTLINE AT IF YOU CAN NOT AFFORD TO SEE A PHYSICIAN YOU CAN CHOSE FROM THE FOLLOWING [facility] [address] [facility] [address] [facility]. [facility] [address] [facility] [address] [facility] [address] [facility]. [facility] [address] [facility]. [facility] YOU HAVE RECEIVED A MEDICAL SCREENING EXAM AND THE RESULTS INDICATE THAT YOU DO NOT HAVE A CONDITION THAT REQUIRES URGENT TREATMENT IN THE EMERGENCY DEPARTMENT. FURTHER EVALUATION AND TREATMENT OF YOUR CONDITION CAN WAIT UNTIL YOU ARE SEEN IN YOUR DOCTORS OFFICE WITHIN THE NEXT 1-2 DAYS. IT IS YOUR RESPONSIBILITY TO MAKE AN APPOINTMENT FOR FOLOW-UP CARE. IF YOU HAVE A PRIMARY DOCTOR --you should call your primary doctor and schedule and appointment IF YOU DO NOT HAVE A PRIMARY DOCTOR YOU CAN CALL OUR PHYSICIAN REFERRAL HOTLINE AT . IF YOU CAN NOT AFFORD TO SEE A PHYSICIAN YOU CAN CHOSE FROM THE FOLLOWING [facility] INSTITUTIONS: [facility] [address] [place] [address] [facility] [address] [place], [place] [id number] [place] [address] [address] [place] [address] [facility] Additional Instructions: Call your primary care doctor TOMORROW for an appointment during the next 2-3 days.See the doctor sooner or return here if your condition worsens before your appointment time. JOSE HOWARD PA-C Feb 09, 2019 14:50
== END 2019-02-09 14:50 | disposition home or self-care (01) ==
LOC: FTE 12:18
DX: M25.512 Pain in left shoulder (principal); I10 Essential (primary) hypertension; E11.9 Type 2 diabetes mellitus without complications; Z79.84 Long term (current) use of oral hypoglycemic drugs
CPT/HCPCS: 73030; 96372; 99284; J1885

== ENCOUNTER 2019-02-17 14:58 | Emergency (ER) | payer BC ==
[~2019-02-17] VITALS: Wt 75.0 kg
[~2019-02-17 14:58] MED LIST changes: +NAPR-985 PO
[2019-02-17 15:04] VITALS: BP 133/80; PULSE 100; RESP 20
[2019-02-17] MEDS ORDERED: NAPR-985 PO (15:19)
[2019-02-17] MEDS ORDERED: ACYC800T5 PO (15:19)
[2019-02-17] MEDS ORDERED: TRAM50TA2 PO (15:19)
--- NOTE | 2019-02-17 15:27 | ERD ---
ER Documentation Chief Complaint Chief Complaint LEFT ELBOW RASH FOR THE PAST FEW DAYS. NO SOB NOTED. HPI Patient seen and ED 3. 43-year-old female presents with painful rash on the anterior aspect of her left elbow for the last 5 days. She denies fevers, shortness of breath, history of trauma or inciting events. She was seen here a few days ago for left shoulder pain and diagnosed with calcific tendinosis. She denies additional symptoms. ROS All systems reviewed and are negative except as per history of present illness. Medications Home Meds Active Scripts Acyclovir* (Zovirax*) 800 Mg Tablet, 800 MG PO 5 TIMES DAILY for 7 Days, TAB Prov:KATLYN REED MD 02/17/19 Naproxen* (Naprosyn*) 500 Mg Tablet, 500 MG PO BID PRN for PAIN AND/OR I NFLAMMATION, #30 TAB Prov:KATLYN REED MD 02/17/19 Tramadol HCl (Tramadol HCl) 50 Mg Tablet, 50 MG PO Q4 PRN for PAIN, #20 TAB Prov:KATLYN REED MD 02/17/19 Naproxen* (Naprosyn*) 500 Mg Tablet, 500 MG PO BID PRN for PAIN AND/OR INFLAMMATION, #30 TAB Prov:JOSE HOWARD PA-C 02/09/19 Metronidazole* (Metrogel* Vaginal) 0.75% -70 Gram Gel.w.appl, 1 APPFUL VAG HS, #1 TUB Prov:MARIVEL HINOJOSA PA-C 12/09/18 Fluconazole* (Diflucan*) 150 Mg Tablet, 150 MG PO ONCE, #1 TAB Prov:MARIVEL HINOJOSA PA-C 12/09/18 Ibuprofen* (Motrin*) 800 Mg Tab, 800 MG PO Q6, #30 TAB Prov:MARIVEL HINOJOSA PA-C 11/13/18 Meclizine Hcl* (Meclizine Hcl*) 25 Mg Tablet, 25 MG PO Q8H PRN for DIZZINESS, #20 TAB Prov:WILLIAM ARANGO MD 08/30/18 Reported Medications Cholecalciferol (Vitamin D3) (Vitamin D-3) 2,000 Unit Tablet, 2000 TAB PO DAILY 08/30/18 Metformin* (Glucophage*) 1,000 Mg Tablet, 1000 MG PO BID, #60 TAB 08/30/18 Atorvastatin* (Atorvastatin*) 40 Mg Tablet, 40 MG PO QHS, #30 TAB 08/30/18 Lisinopril* (Lisinopril*) 10 Mg Tablet, 10 MG PO DAILY, #30 TAB 05/09/18 Allergies Allergies: Coded Allergies: No Known Allergies (Verified Allergy, Mild, 11/13/18) PMhx/Soc History of Surgery: Yes (tubal ligation ) Anesthesia Reaction: No Hx Neurological Disorder: Yes (MIGRAINES ) Hx Respiratory Disorders: No Hx Cardiac Disorders: Yes (Hypertension, hyperlipidemia, diabetes) Hx Psychiatric Problems: Yes (ANXIETY ) Hx Miscellaneous Medical Probl: No Hx Alcohol Use: No Hx Substance Use: No Hx Tobacco Use: No FmHx Family History: No diabetes, No coronary disease, No other Physical Exam Vitals Vital Signs Date Temp Pulse Resp B/P (MAP) Pulse Ox O2 O2 Flow FiO2 Time Delivery Rate 02/17/19 98.8 100 20 133/80 98 15:04 (97) Physical Exam Const: No acute distress Head: Atraumatic Eyes: Normal Conjunctiva ENT: Normal External Ears, Nose and Mouth. Neck: Full range of motion. No meningismus. Resp: Clear to auscultation bilaterally Cardio: Regular rate and rhythm, no murmurs Abd: Soft, non tender, non distended. Normal bowel sounds Skin: No petechiae or purpura. Tender mostly dry vesicular rash on the anterior aspect of left elbow. Few scattered lesions in the same dermatome. Back: No midline or flank tenderness Ext: No cyanosis, or edema Neur: Awake and alert Psych: Normal Mood and Affect Procedures/MDM Patient presents with signs and symptoms of what appears to be a herpetic for likely zoster lesion in her left anterior elbow. She has no signs of sepsis, chest pain, shortness of breath. She has no other signs or symptoms of concerning conditions currently. She will be treated with acyclovir, tramadol, ibuprofen, recommendations for primary care follow-up and continued treatment with her primary doctor for left shoulder pain. Patient counseled on the natural history of herpes zoster and that she may be contagious to and vaccinated or nonimmune individuals.. The patient was stable with no new complaints during the ER course. Clinically, there is no current evidence to suggest meningitis, sepsis, acute abdomen, pneumonia, stroke, acute coronary syndrome, pulmonary embolism, aortic dissection or any other emergent condition appearing to require further evaluation or hospitalization. Patient counseled regarding my diagnostic impression and care plan. Prior to discharge all questions answered. Pt agrees with treatment plan and understands strict return precautions. Pt is instructed to follow up with primary care provider within 24-48 hours. Precautionary instructions provided including instructions to return to the ER if not improving or for any worsening or changing symptoms or concerns. Departure Diagnosis: Primary Impression: Shingles Herpes zoster complications: without complications Qualified Codes: B02.9 - Zoster without complications Condition: Stable Patient Instructions: Shingles (Herpes Zoster) Additional Instructions: Skin lesions appear to be shingles. Recheck with primary doctor or for new or worsening symptoms-fevers, shortness of breath, vomiting, new worsening symptoms. See primary doctor and orthopedist as scheduled for shoulder pain. KATLYN REED MD Feb 17, 2019 15:27
== END 2019-02-17 15:38 | disposition home or self-care (01) ==
LOC: E/R 14:58
DX: B02.9 Zoster without complications (principal); I10 Essential (primary) hypertension; E11.9 Type 2 diabetes mellitus without complications; Z79.84 Long term (current) use of oral hypoglycemic drugs
CPT/HCPCS: 99283

== ENCOUNTER 2019-02-17 21:51 | Emergency (ER) | payer BC ==
[~2019-02-17] VITALS: Ht 160 cm; Wt 100.0 kg
[~2019-02-17 21:51] MED LIST changes: +ACYC800T5 PO; +TRAM50TA2 PO
[2019-02-17 21:54] VITALS: BP 167/82; PULSE 87; RESP 18; Ht 160 cm; Wt 100.0 kg
[2019-02-17] MEDS ORDERED: OXYCODONE/ACETAMINOPHEN (5/325) TAB PO ONE (23:30)
--- NOTE | 2019-02-17 23:45 | ERD ---
ER Documentation Chief Complaint Chief Complaint diagnosed with shingles today can't take the pain HPI 43-year-old female presents due to shingles pain. Patient states that she was just here earlier today and was diagnosed with shingles but was not given anything for pain and she wants pain medication right now so she can go to sleep. Denies any worsening symptoms. ROS All systems reviewed and are negative except as per history of present illness. Medications Home Meds Active Scripts Acyclovir* (Zovirax*) 800 Mg Tablet, 800 MG PO 5 TIMES DAILY for 7 Days, TAB Prov:KATLYN REED MD 02/17/19 Naproxen* (Naprosyn*) 500 Mg Tablet, 500 MG PO BID PRN for PAIN AND/OR INFLAMMATION, #30 TAB Prov:KATLYN REED MD 02/17/19 Tramadol HCl (Tramadol HCl) 50 Mg Tablet, 50 MG PO Q4 PRN for PAIN, #20 TAB Prov:KATLYN REED MD 02/17/19 Naproxen* (Naprosyn*) 500 Mg Tablet, 500 MG PO BID PRN for PAIN AND/OR INFLAMMATION, #30 TAB Prov:JOSE HOWARD PA-C 02/09/19 Metronidazole* (Metrogel* Vaginal) 0.75% -70 Gram Gel.w.appl, 1 APPFUL VAG HS, #1 TUB Prov:MARIVEL HINOJOSA PA-C 12/09/18 Fluconazole* (Diflucan*) 150 Mg Tablet, 150 MG PO ONCE, #1 TAB Prov:MARIVEL HINOJOSA PA-C 12/09/18 Ibuprofen* (Motrin*) 800 Mg Tab, 800 MG PO Q6, #30 TAB Prov:MARIVEL HINOJOSA PA-C 11/13/18 Meclizine Hcl* (Meclizine Hcl*) 25 Mg Tablet, 25 MG PO Q8H PRN for DIZZINESS, #20 TAB Prov:WILLIAM ARANGO MD 08/30/18 Reported Medications Cholecalciferol (Vitamin D3) (Vitamin D-3) 2,000 Unit Tablet, 2000 TAB PO DAILY 08/30/18 Metformin* (Glucophage*) 1,000 Mg Tablet, 1000 MG PO BID, #60 TAB 08/30/18 Atorvastatin* (Atorvastatin*) 40 Mg Tablet, 40 MG PO QHS, #30 TAB 08/30/18 Lisinopril* (Lisinopril*) 10 Mg Tablet, 10 MG PO DAILY, #30 TAB 05/09/18 Allergies Allergies: Coded Allergies: No Known Allergies (Verified Allergy, Mild, 11/13/18) PMhx/Soc History of Surgery: Yes (tubal ligation ) Anesthesia Reaction: No Hx Neurological Disorder: Yes (MIGRAINES ) Hx Respiratory Disorders: No Hx Cardiac Disorders: Yes (Hypertension, hyperlipidemia, diabetes) Hx Psychiatric Problems: Yes (ANXIETY ) Hx Miscellaneous Medical Probl: No Hx Alcohol Use: No Hx Substance Use: No Hx Tobacco Use: No Smoking Status: Never smoker Physical Exam Vitals Vital Signs Date Temp Pulse Resp B/P (MAP) Pulse Ox O2 O2 Flow FiO2 Time Delivery Rate 02/17/19 98.0 87 18 167/82 100 21:54 (110) Physical Exam Const: No acute distress Head: Atraumatic Eyes: Normal Conjunctiva ENT: Normal External Ears, Nose and Mouth. Neck: Full range of motion. No meningismus. Resp: Clear to auscultation bilaterally Cardio: Regular rate and rhythm, no murmurs Abd: Soft, non tender, non distended. Normal bowel sounds Skin: Vesicular lesions on erythematous base located on the left upper arm. Back: No midline or flank tenderness Ext: No cyanosis, or edema Neur: Awake and alert Psych: Normal Mood and Affect Results 24 hrs Current Medications Medications Dose Sig/Keny Start Time Status Last (Trade) Ordered Route PRN Stop Time Admin Dose Reason Admin Oxycodone/ 1 tab ONCE ONCE 02/17/19 DC 02/17/19 Acetaminophen PO 23:30 23:14 (Percocet 02/17/19 23:31 (5/ 325)) Procedures/MDM Patient was given 5 Miligram Percocet to help with the pain in the ER. Patient advised to continue taking the acyclovir and to fill the pain medication that she received earlier today at her pharmacy when it opens in the morning. Patient discharged with strict ER precautions. Patient advised to follow up with PMD. All questions answered at discharge. Departure Diagnosis: Primary Impression: Shingles Herpes zoster complications: without complications Qualified Codes: B02.9 - Zoster without complications Condition: Stable Patient Instructions: Shingles (Herpes Zoster) Additional Instructions: FOLLOW UP WITH YOUR PRIMARY CARE PHYSICIAN TOMORROW.Return to this facility if you are not improving as expected. KOLTON VALENZUELA Feb 17, 2019 23:44
== END 2019-02-17 23:31 | disposition home or self-care (01) ==
LOC: FTE 21:51
DX: B02.9 Zoster without complications (principal); I10 Essential (primary) hypertension; E11.9 Type 2 diabetes mellitus without complications; Z79.84 Long term (current) use of oral hypoglycemic drugs
CPT/HCPCS: 99283; Z7610

== ENCOUNTER 2019-05-29 15:50 | Inpatient (IN) | payer BC ==
[~2019-05-29] VITALS: Ht 144.8 cm; Wt 80.7 kg
[~2019-05-29 15:50] MED LIST changes: +GLIM2TAB47 PO; +LEVO500T10 PO; +LINA5TAB PO; +METF500T3 PO
[2019-05-29 16:01] VITALS: Ht 144.8 cm; Wt 80.7 kg
--- NOTE | 2019-05-29 16:53 | EN ---
Date/Time of Note Date/Time of Note DATE: 05/29/19 TIME: 16:52 ER Progress Note 43-year-old male with history of diabetes and hyperlipidemia presents for subjective fever, nausea, muscle pain, dizziness x1 day. She states that she has been taking her metformin because because of dizziness and she has not been able to see her primary care doctor to switch the medication. Medical screening exam initiated and lab/imaging tests ordered. Patient will be seen by another provider. DRU LYN DO May 29, 2019 16:53
[2019-05-29] MEDS ORDERED: SOD CHLORIDE 0.9% 720 ML IV ONE (17:00)
[2019-05-29] MEDS ORDERED: SOD CHLORIDE 0.9% 1,000 ML IV STA ×3 (17:10→19:49)
[2019-05-29] MEDS ORDERED: ACETAMINOPHEN 500 MG TAB PO STA (17:15)
[2019-05-29] MEDS ORDERED: KETOROLAC 15 MG INJ IV STA (17:15)
[2019-05-29] MEDS ORDERED: ACCU-CHEK XX ONE (18:30)
[2019-05-29] MEDS ORDERED: INSULIN LISPRO 100 UNIT/ML VIAL SC ONE (18:30)
--- NOTE | 2019-05-29 19:26 | ERD ---
ER Documentation Chief Complaint Chief Complaint fever, nause /vomiting x 1 day HPI 43-year-old female with no significant past medical history other than hypertension and diabetes that is poorly controlled with poor compliance with medication regimen. The patient presents with less than 24 hours of symptoms that include nonbloody nonbilious emesis, subjective fevers, generalized malaise and myalgia and mild abdominal cramping diffusely. She notes loose stools yesterday. No recent travel, sick contacts, antibiotics. ROS All systems reviewed and are negative except as per history of present illness. Medications Home Meds Reported Medications Atorvastatin* (Atorvastatin*) 40 Mg Tablet, 40 MG PO QHS, #30 TAB 05/29/19 Discontinued Reported Medications Cholecalciferol (Vitamin D3) (Vitamin D-3) 2,000 Unit Tablet, 2000 TAB PO DAILY 08/30/18 Metformin* (Glucophage*) 1,000 Mg Tablet, 1000 MG PO BID, #60 TAB 08/30/18 Atorvastatin* (Atorvastatin*) 40 Mg Tablet, 40 MG PO QHS, #30 TAB 08/30/18 Lisinopril* (Lisinopril*) 10 Mg Tablet, 10 MG PO DAILY, #30 TAB 05/09/18 Discontinued Scripts Acyclovir* (Zovirax*) 800 Mg Tablet, 800 MG PO 5 TIMES DAILY for 7 Days, TAB Prov:KATLYN REED MD 02/17/19 Naproxen* (Naprosyn*) 500 Mg Tablet, 500 MG PO BID PRN for PAIN AND/OR INFLAMMATION, #30 TAB Prov:KATLYN REED MD 02/17/19 Tramadol HCl (Tramadol HCl) 50 Mg Tablet, 50 MG PO Q4 PRN for PAIN, #20 TAB Prov:KATLYN REED MD 02/17/19 Naproxen* (Naprosyn*) 500 Mg Tablet, 500 MG PO BID PRN for PAIN AND/OR INFLAMMATION, #30 TAB Prov:JOSE HOWARD PA-C 02/09/19 Metronidazole* (Metrogel* Vaginal) 0.75% -70 Gram Gel.w.appl, 1 APPFUL VAG HS, #1 TUB Prov:MARIVEL HINOJOSA PA-C 12/09/18 Fluconazole* (Diflucan*) 150 Mg Tablet, 150 MG PO ONCE, #1 TAB Prov:MARIVEL HINOJOSA PA-C 12/09/18 Ibuprofen* (Motrin*) 800 Mg Tab, 800 MG PO Q6, #30 TAB Prov:MARIVEL HINOJOSA PA-C 11/13/18 Meclizine Hcl* (Meclizine Hcl*) 25 Mg Tablet, 25 MG PO Q8H PRN for DIZZINESS, #20 TAB Prov:WILLIAM ARANGO MD 08/30/18 Allergies Allergies: Coded Allergies: No Known Allergies (Verified Allergy, Mild, 05/29/19) PMhx/Soc History of Surgery: Yes (tubal ligation ) Anesthesia Reaction: No Hx Neurological Disorder: Yes (MIGRAINES ) Hx Respiratory Disorders: No Hx Cardiac Disorders: Yes (Hypertension, hyperlipidemia, diabetes) Hx Psychiatric Problems: Yes (ANXIETY ) Hx Miscellaneous Medical Probl: No Hx Alcohol Use: No Hx Substance Use: No Hx Tobacco Use: No Smoking Status: Unknown if ever smoked FmHx Family History: diabetes Physical Exam Vitals Vital Signs Date Temp Pulse Resp B/P (MAP) Pulse Ox O2 O2 Flow FiO2 Time Delivery Rate 05/29/19 97.8 100 96/64 (75) 100 Room Air 19:00 05/29/19 101.7 17:36 05/29/19 101.7 117 24 113/72 99 Room Air 17:20 (86) 05/29/19 98.2 126 19 139/67 98 16:01 (91) Physical Exam General: Well developed, well nourished, no acute distress Head: Normocephalic, atraumatic. Eyes: Pupils equally reactive, EOM intact ENT: Moist mucous membranes Neck: Supple, no lymphadenopathy Respiratory: Lungs clear bilaterally, no distress Cardiovascular: Slight tachycardia, no murmurs, rubs, or gallops Abdominal: Soft, inconsistent exam but diffuse tenderness without significant localization : Deferred MSK: No edema, no unilateral swelling, 5/5 strength Neurologic: Alert and oriented, moving all extremities, normal speech, no focal weakness, no cerebellar signs Skin: No rash Psych: Normal mood Result Diagram: 05/29/19 1726 05/29/19 1726 Results 24 hrs Laboratory Tests Test 05/29/19 16:15 05/29/19 17:18 05/29/19 17:25 05/29/19 17:26 Bedside Glucose 365 mg/dL Blood Gas Blood venous Specimen Source Arterial Blood 05/29/2019 5:25:4 Date Drawn 1 PM Arterial Blood OTHER Gas Puncture Site Kalin Test N/A Venous Blood pH 7.495 Venous Blood 28.8 mmHG pCO2 (Temp Corrected) Venous Blood pO2 66.6 mmHG (Temp Corrected) Venous Blood 21.7 mmol/L HCO3 Venous Blood 94.0 mmHG Oxygen Saturation Venous Blood -0.4 mmol/L Base Excess Venous Blood 14.0 g/dl Total Hemoglobin Venous Blood 92.9 % Oxyhemoglobin Venous Blood 0.2 % Methemoglobin Blood Gas A-a O2 48.6 mmHg Differential Carboxyhemoglobi 1.0 % n Blood Gas 37.0 C Temperature Blood Gas ROOM AIR Modality FiO2 21.0 % Blood Gas MDA Notified Whom Blood Gas 05/29/2019 5:28:1 Notified Time 7 PM POC Venous 2.6 mmol/L Lactate White Blood 9.5 10^3/ul Count Red Blood Count 4.77 10^6/ul Hemoglobin 12.9 g/dl Hematocrit 39.2 % Mean Corpuscular 82.2 fl Volume Mean Corpuscular 27.0 pg Hemoglobin Mean Corpuscular 32.9 g/dl Hemoglobin Grazyna nt Red Cell 12.9 % Distribution Width Platelet Count 314 10^3/UL Mean Platelet 9.4 fl Volume Immature 0.500 % Granulocytes % Neutrophils % 74.7 % Lymphocytes % 17.8 % Monocytes % 6.6 % Eosinophils % 0.0 % Basophils % 0.4 % Nucleated Red 0.0 /100WBC Blood Cells % Immature 0.050 10^3/ul Granulocytes # Neutrophils # 7.1 10^3/ul Lymphocytes # 1.7 10^3/ul Monocytes # 0.6 10^3/ul Eosinophils # 0.0 10^3/ul Basophils # 0.0 10^3/ul Nucleated Red 0.0 10^3/ul Blood Cells # Sodium Level 133 mmol/L Potassium Level 4.1 mmol/L Chloride Level 98 mmol/L Carbon Dioxide 20 mmol/L Level Anion Gap 15 Blood Urea 15 mg/dl Nitrogen Creatinine 0.57 mg/dl Est Glomerular > 60 mL/min Filtrat Rate mL/min Glucose Level 370 mg/dl Calcium Level 9.8 mg/dl Total Bilirubin 0.4 mg/dl Direct Bilirubin 0.00 mg/dl Indirect 0.4 mg/dl Bilirubin Aspartate Amino 26 IU/L Transf (AST/SGOT ) Alanine 24 IU/L Aminotransferase (ALT/SGPT) Alkaline 161 IU/L Phosphatase Total Protein 9.0 g/dl Albumin 4.3 g/dl Globulin 4.70 g/dl Albumin/Globulin 0.91 Ratio Test 05/29/19 17:29 05/29/19 18:34 05/29/19 18:38 05/29/19 18:56 Lipase 113 U/L Urine Color YELLOW Urine Clarity SLIGHTLY CLOUDY Urine pH 5.0 Urine Specific 1.023 [place] Urine Ketones NEGATIVE mg/dL Urine Nitrite POSITIVE mg/dL Urine Bilirubin NEGATIVE mg/dL Urine NEGATIVE mg/dL Urobilinogen Urine Leukocyte TRACE Santosh/ul Esterase Urine 1 /HPF Microscopic RBC Urine 26 /HPF Microscopic WBC Urine Squamous MODERATE /HPF Epithelial Cells Urine Bacteria FEW /HPF Urine Mucus FEW /HPF Urine Hemoglobin 1+ mg/dL Urine Glucose 3+ mg/dL Urine Total NEGATIVE mg/dl Protein Bedside Glucose 341 mg/dL Lactic Acid 2.7 mmol/L Level Current Medications Medications Dose Sig/Keny Start Time Status Last (Trade) Ordered Route PRN Stop Time Admin Dose Reason Admin Sodium 720 ml @ ONCE ONCE 05/29/19 DC Chloride 720 mls/hr IV 17:00 05/29/19 17:12 Sodium 1,000 ml @ Q1H STAT 05/29/19 DC 05/29/19 Chloride 1,000 mls/hr IV 17:10 17:37 05/29/19 18:09 Ketorolac 15 mg ONCE STAT 05/29/19 DC 05/29/19 Tromethamine IV 17:15 17:36 (Toradol) 05/29/19 17:18 1,000 mg ONCE STAT 05/29/19 DC 05/29/19 Acetaminophen PO 17:15 17:36 (Tylenol 05/29/19 17:18 Tab) Insulin 10 unit ONCE ONCE 05/29/19 DC 05/29/19 Human SC 18:30 18:49 Lispro 05/29/19 18:31 (Humalog) Diagnostic 1 ea 2 HRS AFTER 05/29/19 DC Test (Pha) HUMALOG ONCE 18:30 (Accu-Chek) XX 05/29/19 18:31 Sodium 1,000 ml @ Q1H STAT 05/29/19 DC 05/29/19 Chloride 1,000 mls/hr IV 18:44 18:48 05/29/19 19:43 Ceftriaxone 50 ml @ ONCE ONCE 05/29/19 DC 05/29/19 Sodium 100 mls/hr IVPB 19:30 19:41 05/29/19 19:59 Sodium 1,000 ml @ Q1H STAT 05/29/19 05/29/19 Chloride 1,000 mls/hr IV 19:49 19:59 05/29/19 20:48 Ondansetron 4 mg BRIDGE ORDER 05/29/19 HCl (Zofran PRN IV 20:30 Inj) NAUSEA/VOMITI 05/30/19 20:29 NG 650 mg ER BRIDGE 05/29/19 Acetaminophen PRN PO 20:30 (Tylenol .MILD PAIN 05/30/19 20:29 Tab) 1-3 OR TEMP Procedures/MDM EKG, MONITORS, & DIAGNOSTIC IMAGING: Gallbladder ultrasound: No acute process per radiologist read CT abdomen and pelvis: No acute process per radiologist read LAB INTERPRETATION: I reviewed the laboratory testing and it shows subtle lactic acid elevation, urinary tract infection, normal pH MEDICAL DECISION MAKING: Patient is noncompliant with her diabetes medication. Her laboratory testing shows no evidence of DKA. The patient would benefit from fluids and subcutaneous Humalog. No indication for insulin drip. Patient has generalized abdominal pain with a fever. Broad differential exists including cholecystitis, acute abdominal process, appendicitis, diverticulitis. Laboratory testing and CT imaging indicated. ER COURSE: * Patient did have fever and tachycardia. The patient did not have clear source of infection therefore code sepsis was not initiated. However, lactic acid and blood cultures were taken. The patient does have a borderline lactic acid elevation possibly secondary to dehydration, glucose elevation * Patient does have urinalysis that shows evidence of UTI revealed around 7:20 PM. Patient given ceftriaxone. The patient is receiving multiple liters of normal saline. The patient is otherwise well-appearing and I believe likely safe for discharge. Patient will receive fluid resuscitation repeat lactic acid. If normalized the patient feels better she can be safely discharged. * Patient's lactic acid is not improving. It is not clear if the patient is taking metformin. Patient looks well. However, given persistent lactic acidosis and noncompliance with medication regimen concern for possible bacteremia exist. Patient was given 1/3 L normal saline, continues to be well-appearing and will be admitted for further management. No indication for central line or pressors. CONSULTATION: None DISPOSITION PLAN: Accepting care team and consultations: I discussed the current laboratory data, diagnostic imaging and emergency care provided. Admitting team: Dr. Holman Admitting team indication: Insurance directed Sepsis Documentation: Patient's infectious symptoms have not stabilized and the patient is at risk of rapid decompensation. The patient will be admitted for careful hydration, antibiotic therapy, and infectious source control. SEVERE SEPSIS CRITERIA: Infectious source: Urinary tract infection End organ damage indicated by: [Lactate > 2.0 mmol/L SEPSIS MANAGEMENT Time of recognition of sepsis: 7:20 PM. Time of recognition of severe sepsis: 7:20 PM. Time of recognition of septic shock: No septic shock at this time. 3 HOUR BUNDLE Blood cultures x 2 before broad-spectrum antibiotics: Yes 30 ml/kg NS bolus completed Initial lactate 2.6 Repeat lactate 2.7 SEPTIC SHOCK ASSESSMENT: No lactic acid > 4.0 No persistent hypotension (SBP < 90 or 40 mmHg drop, MAP < 65) despite 30 mL/kg IV fluid bolus VOLUME REASSESSMENT FOR SEPTIC SHOCK: The patient does not meet criteria for septic shock in the emergency department at this time PERSISTENT HYPOTENSION TREATMENT: Comfort care no Central line not Required Vasopressor started not required I considered further perfusion assessment with CVP measurement, SCVO2, bedside ultrasound volume assessment, passive leg raise, trial of further fluid bolus. And proceeded with 30 ml/kg fluid bolus of NSS, broad spectrum antibiotics, and admission. CRITICAL CARE Critical care time 35 minutes Emergent fluid management while maintaining close respiratory support. Provision of immediate and broad-spectrum antibiotic therapy. Simultaneous assessment for possible sources in order to direct targeted therapy. Consideration for invasive and chemical support to prevent cardiopulmonary collapse. Critical care time is independent of procedures performed. Departure Diagnosis: Primary Impression: UTI (urinary tract infection) Urinary tract infection type: acute cystitis Hematuria presence: without hematuria Qualified Codes: N30.00 - Acute cystitis without hematuria Additional Impressions: Generalized abdominal pain Severe sepsis Condition: Stable TOMER GARCIA MD May 29, 2019 19:26
[2019-05-29] MEDS ORDERED: CEFTRIAXONE 1 GM/50 ML (PMX) 50 ML IVPB ONE (19:30)
[2019-05-29] MEDS ORDERED: ACETAMINOPHEN 325 MG TAB PO PRN (20:30)
[2019-05-29] MEDS ORDERED: ONDANSETRON 4 MG INJ IV PRN ×2 (20:30→21:00)
--- NOTE | 2019-05-29 20:48 | HP ---
Date/Time of Note Date/Time of Note DATE: 05/29/19 TIME: 20:48 Assessment/Plan VTE Prophylaxis SCD applied (from Nsg): Yes Pharmacological prophylaxis: NA/contraindicated Pharm contraindication: low risk/ambulating Lines/Catheters IV Catheter Type (from Nrsg): Saline Lock Assessment/Plan Hospital Course This is a 43-year-old female being admitted to the telemetry floor for: #1 severe sepsis: Likely secondary to underlying urinary tract infection. Ceftriaxone 1 g every 24 hours. Await urine culture results. IV fluid hydration. Trend lactic acid levels. IV fluid hydration with normal saline. #2 Urinary tract infection: Ceftriaxone 1 g every 24 hours, await urine culture results. #3 Uncontrolled diabetes mellitus: Secondary to noncompliance. Patient does not appear to be in DKA. Will give a dose of Lantus 10 units. Insulin sliding scale. We will need to encourage medication compliance. #4 lactic acidosis: Possibly secondary to underlying hyperglycemia, sepsis, occasional metformin use. Hydrate the patient. We will treat the underlying infection. Control patient blood sugars. #5 metabolic acidosis: Likely multifactorial secondary to underlying lactic acidosis, urinary tract infection. Will treat the underlying causes, antibiotic. Monitor #6 hyperlipidemia: Statin, check lipid panel #7 obesity: We will check hemoglobin A 1C, the panel, TSH #8 DVT GI prophylaxis: SCDs, no GI prophylaxis indicated Further treatment strategy will be implemented as per the clinical course Result Diagram: 05/29/19 1726 05/29/19 1726 Results 24hrs Laboratory Tests Test 05/29/19 16:15 05/29/19 17:18 05/29/19 17:25 05/29/19 17:26 Bedside Glucose 365 H Blood Gas Blood venous Specimen Source Arterial Blood 05/29/2019 5:25:4 Date Drawn 1 PM Arterial Blood OTHER Gas Puncture Site Kalin Test N/A Venous Blood pH 7.495 H Venous Blood pCO2 28.8 L (Temp Corrected) Venous Blood pO2 66.6 H (Temp Corrected) Venous Blood HCO3 21.7 L Venous Blood 94.0 H Oxygen Saturation Venous Blood Base -0.4 Excess Venous Blood 14.0 Total Hemoglobin Venous Blood 92.9 Oxyhemoglobin Venous Blood 0.2 Methemoglobin Blood Gas A-a O2 48.6 Differential Carboxyhemoglobin 1.0 Blood Gas 37.0 Temperature Blood Gas ROOM AIR Modality FiO2 21.0 Blood Gas [facility] Notified Whom Blood Gas 05/29/2019 5:28:1 Notified Time 7 PM POC Venous 2.6 *H Lactate White Blood Count 9.5 Red Blood Count 4.77 Hemoglobin 12.9 Hematocrit 39.2 Mean Corpuscular 82.2 Volume Mean Corpuscular 27.0 L Hemoglobin Mean Corpuscular 32.9 Hemoglobin Concen t Red Cell 12.9 Distribution Width Platelet Count 314 # Mean Platelet 9.4 Volume Immature 0.500 H Granulocytes % Neutrophils % 74.7 Lymphocytes % 17.8 Monocytes % 6.6 Eosinophils % 0.0 Basophils % 0.4 Nucleated Red 0.0 Blood Cells % Immature 0.050 H Granulocytes # Neutrophils # 7.1 Lymphocytes # 1.7 Monocytes # 0.6 Eosinophils # 0.0 Basophils # 0.0 Nucleated Red 0.0 Blood Cells # Sodium Level 133 L Potassium Level 4.1 Chloride Level 98 Carbon Dioxide 20 L Level Anion Gap 15 H Blood Urea 15 Nitrogen Creatinine 0.57 Est Glomerular > 60 Filtrat Rate mL/min Glucose Level 370 H Calcium Level 9.8 Total Bilirubin 0.4 Direct Bilirubin 0.00 Indirect 0.4 Bilirubin Aspartate Amino 26 Transf (AST/SGOT) Alanine 24 Aminotransferase (ALT/SGPT) Alkaline 161 H Phosphatase Total Protein 9.0 H Albumin 4.3 Globulin 4.70 H Albumin/Globulin 0.91 Ratio Test 05/29/19 17:29 05/29/19 18:34 05/29/19 18:38 05/29/19 18:56 Lipase 113 Urine Color YELLOW Urine Clarity SLIGHTLY CLOUDY A Urine pH 5.0 Urine Specific 1.023 [place] Urine Ketones NEGATIVE Urine Nitrite POSITIVE A Urine Bilirubin NEGATIVE Urine NEGATIVE Urobilinogen Urine Leukocyte TRACE A Esterase Urine Microscopic 1 RBC Urine Microscopic 26 H WBC Urine Squamous MODERATE Epithelial Cells Urine Bacteria FEW A Urine Mucus FEW A Urine Hemoglobin 1+ H Urine Glucose 3+ H Urine Total NEGATIVE Protein Bedside Glucose 341 H Lactic Acid Level 2.7 *H Test 05/29/19 20:41 Bedside Glucose 174 HPI/ROS Admit Date/Time Admit Date/Time Hx of Present Illness Chief complaint: Vomiting, fevers and abdominal cramping 43-year-old female with no significant past medical history other than hypertension and diabetes that is poorly controlled with poor compliance with medication regimen. The patient presents with less than 24 hours of symptoms that include nonbloody nonbilious emesis, subjective fevers, generalized malaise and myalgia and mild abdominal cramping diffusely. She notes loose stools yest erday. No recent travel, sick contacts, antibiotics. She does report that she takes metformin but the last time she took it was a few days ago. Allergies: NKDA medications: Noncompliant ROS Const: As per HPI Eyes : No pain discharge or redness or change in visual acuity ENT: No pain, sore throat, congestion, congestion, dysphagia or discharge Respiratory: No shortness of breath, cough, sputum, wheezing, or pleuritic pain Cardiovascular: No chest pain, palpitation, PND, or edema GI : n as per HPI ol Genitourinary: No dysuria, hematuria, flank pain , discharge or CVA tenderness Musculoskeletal: No joint pain, back pain, neck pain, restricted range of motion in neck or joints Skin: No rash, bruising or hives Neuro: No headache, dizziness, syncope, seizure, focal weakness Endocrine: No polyuria, polydipsia, temperature intolerance Psych: No hallucination, depression, anxiety or suicidal ideation PMH/Family/Social Past Medical History DM, HTN Medications Current Medications Sodium Chloride 1,000 ml @ 1,000 mls/hr Q1H STAT IV Last administered on at 19:59; Admin Dose 1,000 MLS/HR; Start 05/29/19 at 19:49; Stop 05/29/19 at 20:48 Ondansetron HCl (Zofran Inj) 4 mg BRIDGE ORDER PRN IV NAUSEA/VOMITING; Start 05/29/19 at 20:30; Stop 05/30/19 at 20:29 Acetaminophen (Tylenol Tab) 650 mg ER BRIDGE PRN PO .MILD PAIN 1-3 OR TEMP; Start 05/29/19 at 20:30; Stop 05/30/19 at 20:29 Insulin Glargine (Lantus) 10 units ONCE ONCE SC ; Start 05/29/19 at 21:00; Stop 05/29/19 at 21:01 Sodium Chloride 500 ml @ 500 mls/hr Q1H ONCE IV ; Start 05/29/19 at 21:00; Stop 05/29/19 at 21:59 Miscellaneous Information 1 ea NOTE XX ; Start 05/29/19 at 21:00 Glucose (Glutose) 15 gm Q15M PRN PO DECREASED GLUCOSE; Start 05/29/19 at 21:00 Glucose (Glutose) 22.5 gm Q15M PRN PO DECREASED GLUCOSE; Start 05/29/19 at 21:00 Dextrose (D50w Syringe) 25 ml Q15M PRN IV DECREASED GLUCOSE; Start 05/29/19 at 21:00 Dextrose (D50w Syringe) 50 ml Q15M PRN IV DECREASED GLUCOSE; Start 05/29/19 at 21:00 Glucagon (Glucagen) 1 mg Q15M PRN IM DECREASED GLUCOSE; Start 05/29/19 at 21:00 Glucose (Glutose) 15 gm Q15M PRN BUCCAL DECREASED GLUCOSE; Start 05/29/19 at 21:00 IV Flush (NS 3 ml) 3 ml PER PROTOCOL IV ; Start 05/29/19 at 21:00; Status UNV Ondansetron HCl (Zofran Inj) 4 mg Q6H PRN IV NAUSEA/VOMITING; Start 05/29/19 at 21:00; Status UNV Acetaminophen (Tylenol Tab) 650 mg Q6H PRN PO .PAIN 1-3 OR TEMP; Start 05/29/19 at 21:00; Status UNV Docusate Sodium (Colace) 100 mg Q12H PRN PO .CONSTIPATION; Start 05/29/19 at 21:00; Status UNV Bisacodyl (Dulcolax) 5 mg DAILY PRN PO .CONSTIPATION; Start 05/29/19 at 21:00; Status UNV Ceftriaxone Sodium 50 ml @ 100 mls/hr Q24H IVPB ; Start 05/30/19 at 19:00; Status UNV Coded Allergies: No Known Allergies (Verified Allergy, Mild, 05/29/19) Past Surgical History Tubal ligation Family History Significant Family History: no pertinent family hx Social History Alcohol Use: none Smoking Status: Unknown if ever smoked Drug Use: none Exam/Review of Systems Vital Signs Vitals Vital Signs Date Temp Pulse Resp B/P (MAP) Pulse Ox O2 O2 Flow FiO2 Time Delivery Rate 05/29/19 97.8 100 96/64 (75) 100 Room Air 19:00 05/29/19 24 17:20 Exam Exam General: Patient is a pleasant female currently lying in bed in no acute distress HEENT: Atraumatic, normocephalic. The pupils are equal, round and reactive. Extraocular motor are intact Neck: Supple with full range of motion. No rigidity or meningismus Chest: Nontender Lungs: Clear to auscultation bilaterally no crackles rales or wheezing Heart: Normal S1-S2, Regular rhythm and rate. No murmur, S3, or S4 Abdomen: Obese, soft , suprapubic tenderness palpation, nondistended , bowel sounds are present. No guarding no rebound tenderness , No masses or organomegaly. No costovertebral temporal angle mass Extremities: Normal to inspection, no edema no cyanosis Neurologic: Normal mental status, speech normal, cranial nerves II through XII are intact, motor and sensory are intact, no focal weakness Additional Comments PROCEDURE: CT abdomen and pelvis without contrast. CLINICAL INDICATION: Abdominal Pain TECHNIQUE: CT scan of the abdomen and pelvis without oral contrast was performed and is reconstructed at 2.5 mm contiguous axial intervals from the dome of the diaphragm to the inferior pubic rami.. The patient was scanned without intravenous contrast. Sagittal and coronal reformatted images were obtained from the axial source images. The calculated radiation dose measures 1076 mGy centimeters. The CTDI measures 17.4 mGy. Individualized dose optimization technique was used for the performance of this exam. This included 1. Automated exposure control. 2. Adjustment of the mA and / or kV according to the patient's size. 3. Use of iterative reconstructed technique. DICOM images are available. COMPARISON: None. FINDINGS: The lung bases are clear of any infiltrate or nodule. No effusion is seen. Liver is enlarged measuring 22 cm. There is fatty infiltration. There is focal sparing adjacent to the gallbladder. No mass or ductal dilatation is present. No gallstones are visualized. No splenic, adrenal or pancreatic abnormalities present. Kidneys are of normal size and contour. No hydronephrosis, calculus or mass Is seen. Ureters are of normal course and caliber with no stone. No bladder mass or stone is present. Uterus and ovaries appear normal. There is no aneurysm. No adenopathy is present. No bowel mass or obstruction is present. The appendix is normal. No phlegmon, ascites or pneumoperitoneum is visualized. The osseous structures are intact. IMPRESSION: No evidence of urolithiasis, obstructive uropathy, diverticulitis or appendicitis. Enlarged fatty liver. .Ebenezer Hernandez MD, MD Date Time Electronically viewed and signed by .Ebenezer Hernandez MD, MD on 05/29/2019 18:33 .A/ CC: TOMER GARCIA MD [id number] PROCEDURE: US Abdomen. CLINICAL INDICATION: abdominal pain TECHNIQUE: Multiple real-time images were acquired of the patient's right upper quadrant abdomen and retroperitoneum utilizing a high resolution transducer. COMPARISON: None FINDINGS: The liver demonstrates increased echogenicity. The liver is enlarged in size and no focal solid lesions are seen. The liver measures 18.9 cm in length. The portal vein is patent with normal direction of flow. No intrahepatic biliary dilatation is seen. No gallstones are identified within the gallbladder. There is no pericholecystic fluid or gallbladder wall thickening. The common bile duct measures 2 mm in maximal dimension. The visualized portions of the pancreas are unremarkable. The tail of the pancreas is not seen. No free fluid is identified. The right kidney is normal in size, and demonstrate normal echogenicity and cortical thickness. The right kidney measures 9.9 cm in long dimension. There is no evidence of hydronephrosis. There are no kidney stones. RPTAT: AA IMPRESSION: Mild hepatomegaly with diffuse fatty liver. No evidence of gallstones. .Seb Ribeiro MD, MD Date Time Electronically viewed and signed by .Seb Ribeiro MD, MD on 05/29/2019 18:00 .S/ CC: TOMER GARCIA MD [id number] JUAN R RODRÍGUEZ May 29, 2019 20:48
[2019-05-29] MEDS ORDERED: DOCUSATE SODIUM 100 MG CAP PO PRN (21:00)
[2019-05-29] MEDS ORDERED: GLUCAGON 1 MG INJ IM PRN (21:00)
[2019-05-29] MEDS ORDERED: DEXTROSE 50% 50 ML SYRINGE IV PRN ×2 (21:00)
[2019-05-29] MEDS ORDERED: SOD CHLORIDE 0.9% 500 ML IV ONE (21:00)
[2019-05-29] MEDS ORDERED: INSULIN GLARGINE [LANTus] (100 UNITS/ML) SYG SC ONE (21:00)
[2019-05-29] MEDS ORDERED: NACL 0.9% 3 ML SYG IV SCH (21:00)
[2019-05-29] MEDS ORDERED: GLUCOSE GEL 15 GRAM TUBE PO PRN ×2 (21:00)
[2019-05-29] MEDS ORDERED: BISACODYL (EC) 5 MG TAB PO PRN (21:00)
[2019-05-29] MEDS ORDERED: GLUCOSE GEL 15 GRAM TUBE BUCCAL PRN (21:00)
[2019-05-29] MEDS ORDERED: morphine 2 MG INJ IV ONE (22:27)
[2019-05-29 23:01] VITALS: BP 123/60; PULSE 91; RESP 17
[2019-05-30] VITALS: BP 116/67; PULSE 94; RESP 19
[2019-05-30] MEDS: ACCU-CHEK XX SCH (02:42)
[2019-05-30 04:00] VITALS: BP 126/63; PULSE 99; RESP 18
[2019-05-30] MEDS ORDERED: SOD CHLORIDE 0.9% 500 ML IV ONE (07:00)
[2019-05-30 07:20] VITALS: BP 116/66; PULSE 93; RESP 18
[2019-05-30] MEDS ORDERED: INSULIN GLARGINE [LANTus] (100 UNITS/ML) SYG SC SCH (08:00)
[2019-05-30] MEDS: INSULIN ASPART [NOVOLOG] 3 ML PEN SC SCH ×6 (08:03→20:06)
--- NOTE | 2019-05-30 10:24 | PN ---
Date/Time of Note Date/Time of Note DATE: 05/30/19 TIME: 10:23 Assessment/Plan VTE Prophylaxis Risk score (from Nsg)>0 risk: 3 SCD applied (from Nsg): Yes Pharmacological prophylaxis: NA/contraindicated Pharm contraindication: low risk/ambulating Lines/Catheters IV Catheter Type (from Nrsg): Peripheral IV Urinary Cath still in place: No Assessment/Plan Hospital Course SUBJECTIVE: Lying in bed, having 10 out of 10 lower back/bilateral flank pain. Also nauseated, no vomiting. No fevers, dysuria, hematuria. OBJECTIVE: Vital signs-see below PHYSICAL EXAM: Constitutional: Adequately built,not in acute distress. HEENT: Head atraumatic and normocephalic. Eyes: Extraocular muscles intact. Anicteric sclerae. Pupils equal bilaterally, reactive to light. NECK: Supple without lymph node. CHEST: Clear and good breath sounds equally. No wheezing. No rhonchi. HEART: S1, S2. Regular rate and rhythm. ABDOMEN: Tender bilateral flank area/low back. Abdomen soft, no rebound tenderness. Bowel sounds were present. EXTREMITIES: No cyanosis, clubbing or edema. NEUROLOGIC: Alert and oriented x3. No focal deficit. No sensory deficit. PSYCHOSOCIAL: No signs of depression. INTEGUMENTARY: No open wounds. ASSESSMENT AND PLAN:43 yo F w/dm2,dlp admitted with V/V/Fevrs/lisbeth flank pain, found to have sepsis with UTI.. Sepsis Source: UTI -Continue antimicrobials and follow-up blood/urine cultures. UTI/pyelonephritis -Continue ceftriaxone and follow-up urine cultures. Unfortunately, specimen not available in the lab to add a urine culture. As such, urine culture will be repeated and likely can be negative as patient received antimicrobials. -Continue symptoms control DMII, poorly managed -Basal/bolus insulin. Titrate up. -DM education Hyperlipidemia -Continue statin Obesity with BMI 38.5 -Lifestyle modification advised. Prophylaxis: SCDs Disposition: Continue current management, await for clinical improvement and blood cultures/urine culture results. Patient was seen in collaboration with Dr. Wilcox. Result Diagram: 05/30/19 0501 05/30/19 0501 Results 24hrs Laboratory Tests Test 05/29/19 16:15 05/29/19 17:18 05/29/19 17:25 05/29/19 17:26 Bedside Glucose 365 H Blood Gas Blood venous Specimen Source Arterial Blood 05/29/2019 5:25:4 Date Drawn 1 PM Arterial Blood OTHER Gas Puncture Site Kalin Test N/A Venous Blood pH 7.495 H Venous Blood pCO2 28.8 L (Temp Corrected) Venous Blood pO2 66.6 H (Temp Corrected) Venous Blood HCO3 21.7 L Venous Blood 94.0 H Oxygen Saturation Venous Blood Base -0.4 Excess Venous Blood 14.0 Total Hemoglobin Venous Blood 92.9 Oxyhemoglobin Venous Blood 0.2 Methemoglobin Blood Gas A-a O2 48.6 Differential Carboxyhemoglobin 1.0 Blood Gas 37.0 Temperature Blood Gas ROOM AIR Modality FiO2 21.0 Blood Gas [facility] Notified Whom Blood Gas 05/29/2019 5:28:1 Notified Time 7 PM POC Venous 2.6 *H Lactate White Blood Count 9.5 Red Blood Count 4.77 Hemoglobin 12.9 Hematocrit 39.2 Mean Corpuscular 82.2 Volume Mean Corpuscular 27.0 L Hemoglobin Mean Corpuscular 32.9 Hemoglobin Concen t Red Cell 12.9 Distribution Width Platelet Count 314 # Mean Platelet 9.4 Volume Immature 0.500 H Granulocytes % Neutrophils % 74.7 Lymphocytes % 17.8 Monocytes % 6.6 Eosinophils % 0.0 Basophils % 0.4 Nucleated Red 0.0 Blood Cells % Immature 0.050 H Granulocytes # Neutrophils # 7.1 Lymphocytes # 1.7 Monocytes # 0.6 Eosinophils # 0.0 Basophils # 0.0 Nucleated Red 0.0 Blood Cells # Sodium Level 133 L Potassium Level 4.1 Chloride Level 98 Carbon Dioxide 20 L Level Anion Gap 15 H Blood Urea 15 Nitrogen Creatinine 0.57 Est Glomerular > 60 Filtrat Rate mL/min Glucose Level 370 H Calcium Level 9.8 Total Bilirubin 0.4 Direct Bilirubin 0.00 Indirect 0.4 Bilirubin Aspartate Amino 26 Transf (AST/SGOT) Alanine 24 Aminotransferase (ALT/SGPT) Alkaline 161 H Phosphatase Total Protein 9.0 H Albumin 4.3 Globulin 4.70 H Albumin/Globulin 0.91 Ratio Test 05/29/19 17:29 05/29/19 18:34 05/29/19 18:38 05/29/19 18:56 Lipase 113 Urine Color YELLOW Urine Clarity SLIGHTLY CLOUDY A Urine pH 5.0 Urine Specific 1.023 [place] Urine Ketones NEGATIVE Urine Nitrite POSITIVE A Urine Bilirubin NEGATIVE Urine NEGATIVE Urobilinogen Urine Leukocyte TRACE A Esterase Urine Microscopic 1 RBC Urine Microscopic 26 H WBC Urine Squamous MODERATE Epithelial Cells Urine Bacteria FEW A Urine Mucus FEW A Urine Hemoglobin 1+ H Urine Glucose 3+ H Urine Total NEGATIVE Protein Bedside Glucose 341 H Lactic Acid Level 2.7 *H Test 05/29/19 20:41 05/29/19 21:44 05/29/19 23:11 05/29/19 23:30 Bedside Glucose 174 135 191 Lactic Acid Level 1.6 Test 05/30/19 05:01 05/30/19 07:54 White Blood Count 8.7 Red Blood Count 4.31 Hemoglobin 11.7 L Hematocrit 36.5 L Mean Corpuscular 84.7 Volume Mean Corpuscular 27.1 L Hemoglobin Mean Corpuscular 32.1 Hemoglobin Concen t Red Cell 13.1 Distribution Width Platelet Count 284 Mean Platelet 9.9 Volume Immature 0.300 Granulocytes % Neutrophils % 56.6 Lymphocytes % 32.5 Monocytes % 9.1 Eosinophils % 0.9 Basophils % 0.6 Nucleated Red 0.0 Blood Cells % Immature 0.030 Granulocytes # Neutrophils # 4.9 Lymphocytes # 2.8 Monocytes # 0.8 Eosinophils # 0.1 Basophils # 0.1 Nucleated Red 0.0 Blood Cells # Sodium Level 137 Potassium Level 3.7 Chloride Level 107 Carbon Dioxide 21 Level Anion Gap 9 # Blood Urea 13 Nitrogen Creatinine 0.56 Est Glomerular > 60 Filtrat Rate mL/min Glucose Level 247 #H Hemoglobin A1c 12.3 H Lactic Acid Level 2.3 *H Calcium Level 8.5 Magnesium Level 1.6 L Total Bilirubin 0.3 Direct Bilirubin 0.00 Indirect 0.3 Bilirubin Aspartate Amino 21 Transf (AST/SGOT) Alanine 18 Aminotransferase (ALT/SGPT) Alkaline 116 Phosphatase Total Protein 7.4 # Albumin 3.4 Globulin 4.00 H Albumin/Globulin 0.85 Ratio Triglycerides 198 H Level Cholesterol Level 185 LDL Cholesterol, 110 Calculated HDL Cholesterol 35 Cholesterol/HDL 5.2 Ratio Thyroid 1.550 Stimulating Hormone (TSH) Bedside Glucose 196 Exam/Review of Systems Exam Vitals Vital Signs Date Temp Pulse Resp B/P (MAP) Pulse Ox O2 O2 Flow FiO2 Time Delivery Rate 05/30/19 98.1 93 18 116/66 97 Room Air 07:20 (83) Results Results 24hrs Laboratory Tests Test 05/29/19 16:15 05/29/19 17:18 05/29/19 17:25 05/29/19 17:26 Bedside Glucose 365 H Blood Gas Blood venous Specimen Source Arterial Blood 05/29/2019 5:25:4 Date Drawn 1 PM Arterial Blood OTHER Gas Puncture Site Kalin Test N/A Venous Blood pH 7.495 H Venous Blood pCO2 28.8 L (Temp Corrected) Venous Blood pO2 66.6 H (Temp Corrected) Venous Blood HCO3 21.7 L Venous Blood 94.0 H Oxygen Saturation Venous Blood Base -0.4 Excess Venous Blood 14.0 Total Hemoglobin Venous Blood 92.9 Oxyhemoglobin Venous Blood 0.2 Methemoglobin Blood Gas A-a O2 48.6 Differential Carboxyhemoglobin 1.0 Blood Gas 37.0 Temperature Blood Gas ROOM AIR Modality FiO2 21.0 Blood Gas [facility] Notified Whom Blood Gas 05/29/2019 5:28:1 Notified Time 7 PM POC Venous 2.6 *H Lactate White Blood Count 9.5 Red Blood Count 4.77 Hemoglobin 12.9 Hematocrit 39.2 Mean Corpuscular 82.2 Volume Mean Corpuscular 27.0 L Hemoglobin Mean Corpuscular 32.9 Hemoglobin Concen t Red Cell 12.9 Distribution Width Platelet Count 314 # Mean Platelet 9.4 Volume Immature 0.500 H Granulocytes % Neutrophils % 74.7 Lymphocytes % 17.8 Monocytes % 6.6 Eosinophils % 0.0 Basophils % 0.4 Nucleated Red 0.0 Blood Cells % Immature 0.050 H Granulocytes # Neutrophils # 7.1 Lymphocytes # 1.7 Monocytes # 0.6 Eosinophils # 0.0 Basophils # 0.0 Nucleated Red 0.0 Blood Cells # Sodium Level 133 L Potassium Level 4.1 Chloride Level 98 Carbon Dioxide 20 L Level Anion Gap 15 H Blood Urea 15 Nitrogen Creatinine 0.57 Est Glomerular > 60 Filtrat Rate mL/min Glucose Level 370 H Calcium Level 9.8 Total Bilirubin 0.4 Direct Bilirubin 0.00 Indirect 0.4 Bilirubin Aspartate Amino 26 Transf (AST/SGOT) Alanine 24 Aminotransferase (ALT/SGPT) Alkaline 161 H Phosphatase Total Protein 9.0 H Albumin 4.3 Globulin 4.70 H Albumin/Globulin 0.91 Ratio Test 05/29/19 17:29 05/29/19 18:34 05/29/19 18:38 05/29/19 18:56 Lipase 113 Urine Color YELLOW Urine Clarity SLIGHTLY CLOUDY A Urine pH 5.0 Urine Specific 1.023 [place] Urine Ketones NEGATIVE Urine Nitrite POSITIVE A Urine Bilirubin NEGATIVE Urine NEGATIVE Urobilinogen Urine Leukocyte TRACE A Esterase Urine Microscopic 1 RBC Urine Microscopic 26 H WBC Urine Squamous MODERATE Epithelial Cells Urine Bacteria FEW A Urine Mucus FEW A Urine Hemoglobin 1+ H Urine Glucose 3+ H Urine Total NEGATIVE Protein Bedside Glucose 341 H Lactic Acid Level 2.7 *H Test 05/29/19 20:41 05/29/19 21:44 05/29/19 23:11 05/29/19 23:30 Bedside Glucose 174 135 191 Lactic Acid Level 1.6 Test 05/30/19 05:01 05/30/19 07:54 White Blood Count 8.7 Red Blood Count 4.31 Hemoglobin 11.7 L Hematocrit 36.5 L Mean Corpuscular 84.7 Volume Mean Corpuscular 27.1 L Hemoglobin Mean Corpuscular 32.1 Hemoglobin Concen t Red Cell 13.1 Distribution Width Platelet Count 284 Mean Platelet 9.9 Volume Immature 0.300 Granulocytes % Neutrophils % 56.6 Lymphocytes % 32.5 Monocytes % 9.1 Eosinophils % 0.9 Basophils % 0.6 Nucleated Red 0.0 Blood Cells % Immature 0.030 Granulocytes # Neutrophils # 4.9 Lymphocytes # 2.8 Monocytes # 0.8 Eosinophils # 0.1 Basophils # 0.1 Nucleated Red 0.0 Blood Cells # Sodium Level 137 Potassium Level 3.7 Chloride Level 107 Carbon Dioxide 21 Level Anion Gap 9 # Blood Urea 13 Nitrogen Creatinine 0.56 Est Glomerular > 60 Filtrat Rate mL/min Glucose Level 247 #H Hemoglobin A1c 12.3 H Lactic Acid Level 2.3 *H Calcium Level 8.5 Magnesium Level 1.6 L Total Bilirubin 0.3 Direct Bilirubin 0.00 Indirect 0.3 Bilirubin Aspartate Amino 21 Transf (AST/SGOT) Alanine 18 Aminotransferase (ALT/SGPT) Alkaline 116 Phosphatase Total Protein 7.4 # Albumin 3.4 Globulin 4.00 H Albumin/Globulin 0.85 Ratio Triglycerides 198 H Level Cholesterol Level 185 LDL Cholesterol, 110 Calculated HDL Cholesterol 35 Cholesterol/HDL 5.2 Ratio Thyroid 1.550 Stimulating Hormone (TSH) Bedside Glucose 196 Medications Medication Current Medications Miscellaneous Information 1 ea NOTE XX ; Start 05/29/19 at 21:00 Glucose (Glutose) 15 gm Q15M PRN PO DECREASED GLUCOSE; Start 05/29/19 at 21:00 Glucose (Glutose) 22.5 gm Q15M PRN PO DECREASED GLUCOSE; Start 05/29/19 at 21:00 Dextrose (D50w Syringe) 25 ml Q15M PRN IV DECREASED GLUCOSE; Start 05/29/19 at 21:00 Dextrose (D50w Syringe) 50 ml Q15M PRN IV DECREASED GLUCOSE; Start 05/29/19 at 21:00 Glucagon (Glucagen) 1 mg Q15M PRN IM DECREASED GLUCOSE; Start 05/29/19 at 21:00 Glucose (Glutose) 15 gm Q15M PRN BUCCAL DECREASED GLUCOSE; Start 05/29/19 at 21:00 IV Flush (NS 3 ml) 3 ml PER PROTOCOL IV ; Start 05/29/19 at 21:00 Ondansetron HCl (Zofran Inj) 4 mg Q6H PRN IV NAUSEA/VOMITING; Start 05/29/19 at 21:00 Acetaminophen (Tylenol Tab) 650 mg Q6H PRN PO .PAIN 1-3 OR TEMP; Start 05/29/19 at 21:00 Docusate Sodium (Colace) 100 mg Q12H PRN PO .CONSTIPATION; Start 05/29/19 at 21:00 Bisacodyl (Dulcolax) 5 mg DAILY PRN PO .CONSTIPATION; Start 05/29/19 at 21:00 Ceftriaxone Sodium 50 ml @ 100 mls/hr Q24H IVPB ; Start 05/30/19 at 19:00 Diagnostic Test (Pha) (Accu-Chek) 1 ea 02 XX Last administered on 05/30/19at 02:42; Admin Dose 1 EA; Start 05/30/19 at 02:00 Insulin Aspart (Novolog Insulin Pen) NOVOLOG *MILD* ALGORITHM WITH MEALS BEDTIME SC Last administered on 05/30/19at 08:03; Admin Dose 2 UNIT; Start 05/30/19 at 08:00 Atorvastatin Calcium (Lipitor) 40 mg QHS PO ; Start 05/30/19 at 21:00 Insulin Glargine (Lantus) 20 units DAILY@0800 SC Last administered on 05/30/19at 08:18; Admin Dose 20 UNITS; Start 05/30/19 at 08:00 BONITA BRITO NP May 30, 2019 10:24
[2019-05-30] MEDS ORDERED: HYDROmorphONE 1 MG/ML SYG IV PRN (10:30)
[2019-05-30 11:19] VITALS: BP 107/56; PULSE 95; RESP 18
[2019-05-30] MEDS ORDERED: morphine 2 MG INJ IV PRN (11:30)
[2019-05-30 15:13] VITALS: BP 123/60; PULSE 96; RESP 16
[2019-05-30] MEDS: CEFTRIAXONE 1 GM/50 ML (PMX) 50 ML IVPB SCH (18:21)
[2019-05-30] MEDS: ATORVASTATIN 40 MG TAB PO SCH (20:03)
[2019-05-30 20:22] VITALS: BP 124/76; PULSE 98; RESP 19
[2019-05-31] MEDS: ACCU-CHEK XX SCH (02:00)
[2019-05-31 04:00] VITALS: BP 112/70; PULSE 85; RESP 18
[2019-05-31 07:24] VITALS: BP 136/79; PULSE 74; RESP 19
[2019-05-31] MEDS ORDERED: INSULIN GLARGINE [LANTus] (100 UNITS/ML) SYG SC SCH (08:00)
[2019-05-31] MEDS: INSULIN ASPART [NOVOLOG] 3 ML PEN SC SCH ×6 (08:11→21:00)
[2019-05-31] MEDS: ACETAMINOPHEN 325 MG TAB PO PRN ×2 (09:41→23:28)
[2019-05-31 11:03] VITALS: BP 105/59; PULSE 89; RESP 18
[2019-05-31] MEDS ORDERED: GLIMEPIRIDE 2 MG TAB PO ONE (12:00)
--- NOTE | 2019-05-31 12:20 | PN ---
Date/Time of Note Date/Time of Note DATE: 05/31/19 TIME: 12:17 Assessment/Plan VTE Prophylaxis Risk score (from Ns)>0 risk: 3 SCD applied (from [facility]): No SCD contraindicated: low risk/ambulating Pharmacological prophylaxis: heparin Pharm contraindication: low risk/ambulating Lines/Catheters IV Catheter Type (from [facility]): Peripheral IV Urinary Cath still in place: No Assessment/Plan Problems: (1) UTI (urinary tract infection) Status: Acute Comment: Clinically she is planning a treatment. Her urine culture was not ordered in the emergency room and one was finally done she is already had IV antibiotics which is gated the utility of the urine culture. As such we will have to treat her presumptively. However as noted earlier clinically she is better Qualifiers: Urinary tract infection type: acute cystitis Hematuria presence: without hematuria Qualified Codes: N30.00 - Acute cystitis without hematuria (2) Fatty liver Status: Chronic Comment: Noted. Counseled on lifestyle modification, although regrettably I do not think that that part of the discussion spoke to her is strongly (3) Lactic acidosis Status: Resolved Comment: Resolved with antibiotic therapy (4) Diabetes mellitus type 2 in obese Status: Chronic Comment: Patient reports she has had issues where when she takes metformin she gets dizzy. She said actually she thinks that she can tolerate as the dizziness lasts only a few hours and she inquired about taking it at bedtime. I believe this is an appropriate maneuver however she should also have a DPP 4 inhibitor drug added. Regarding use of insulin she refuses. Therefore I will try and come up with a secretagogue therapy to help control her. I spent 35 minutes explained to her the natural history of insulin resistance syndrome and the exact definitions of diet and exercise appropriate to her situation (5) Hyperlipidemia Status: Chronic Comment: She should be on statin therapy at this point Qualifiers: Hyperlipidemia type: pure hypercholesterolemia Qualified Codes: E78.00 - Pure hypercholesterolemia, unspecified (6) Obesity (BMI 30-39.9) Status: Chronic Comment: Counseled extensively Result Diagram: 05/31/19 0457 05/31/19 0457 Results 24hrs Laboratory Tests Test 05/30/19 13:51 05/30/19 17:31 05/30/19 20:00 05/31/19 04:57 Lactic Acid Level 1.6 Bedside Glucose 256 H 185 White Blood Count 10.9 #H Red Blood Count 4.71 Hemoglobin 12.7 Hematocrit 39.4 Mean Corpuscular 83.7 Volume Mean Corpuscular 27.0 L Hemoglobin Mean Corpuscular 32.2 Hemoglobin Concent Red Cell 12.9 Distribution Width Platelet Count 286 Mean Platelet Volume 9.5 Immature 0.600 H Granulocytes % Neutrophils % 51.1 Lymphocytes % 36.2 Monocytes % 9.7 Eosinophils % 1.8 Basophils % 0.6 Nucleated Red Blood 0.0 Cells % Immature 0.060 H Granulocytes # Neutrophils # 5.6 Lymphocytes # 3.9 H Monocytes # 1.1 H Eosinophils # 0.2 Basophils # 0.1 Nucleated Red Blood 0.0 Cells # Sodium Level 134 L Potassium Level 3.8 Chloride Level 100 Carbon Dioxide Level 26 Anion Gap 8 Blood Urea Nitrogen 11 Creatinine 0.60 Est Glomerular > 60 Filtrat Rate mL/min Glucose Level 219 Calcium Level 9.4 Test 05/31/19 08:08 05/31/19 09:44 05/31/19 11:37 Bedside Glucose 205 262 H 226 H Subjective 24 Hr Interval Summary Free Text/Dictation Pleasant female who reports she is feeling much better than she did on admission Constitutional: no complaints (Denies fevers chills or sweats) Respiratory: no complaints Cardiovascular: no complaints Gastrointestinal: no complaints Genitourinary: other (Leg pain has resolved) Exam/Review of Systems Exam Vitals Vital Signs Date Temp Pulse Resp B/P (MAP) Pulse Ox O2 O2 Flow FiO2 Time Delivery Rate 05/31/19 98.1 89 18 105/59 96 11:03 (74) 05/31/19 Room Air 04:00 Intake and Output 05/30/19 05/30/19 05/31/19 1515:00 23:00 07:00 IntakeIntake Total 1000 ml 1600 ml 750 ml BalanceBalance 1000 ml 1600 ml 750 ml Constitutional: alert, oriented Neck: supple, non-tender Respiratory: clear to auscultation, normal air movement Cardiovascular: regular rate and rhythm, nl pulses Gastrointestinal: soft, nl liver, spleen, non-tender Results Results 24hrs Laboratory Tests Test 05/30/19 13:51 05/30/19 17:31 05/30/19 20:00 05/31/19 04:57 Lactic Acid Level 1.6 Bedside Glucose 256 H 185 White Blood Count 10.9 #H Red Blood Count 4.71 Hemoglobin 12.7 Hematocrit 39.4 Mean Corpuscular 83.7 Volume Mean Corpuscular 27.0 L Hemoglobin Mean Corpuscular 32.2 Hemoglobin Concent Red Cell 12.9 Distribution Width Platelet Count 286 Mean Platelet Volume 9.5 Immature 0.600 H Granulocytes % Neutrophils % 51.1 Lymphocytes % 36.2 Monocytes % 9.7 Eosinophils % 1.8 Basophils % 0.6 Nucleated Red Blood 0.0 Cells % Immature 0.060 H Granulocytes # Neutrophils # 5.6 Lymphocytes # 3.9 H Monocytes # 1.1 H Eosinophils # 0.2 Basophils # 0.1 Nucleated Red Blood 0.0 Cells # Sodium Level 134 L Potassium Level 3.8 Chloride Level 100 Carbon Dioxide Level 26 Anion Gap 8 Blood Urea Nitrogen 11 Creatinine 0.60 Est Glomerular > 60 Filtrat Rate mL/min Glucose Level 219 Calcium Level 9.4 Test 05/31/19 08:08 05/31/19 09:44 05/31/19 11:37 Bedside Glucose 205 262 H 226 H Medications Medication Current Medications Miscellaneous Information 1 ea NOTE XX ; Start 05/29/19 at 21:00 Glucose (Glutose) 15 gm Q15M PRN PO DECREASED GLUCOSE; Start 05/29/19 at 21:00 Glucose (Glutose) 22.5 gm Q15M PRN PO DECREASED GLUCOSE; Start 05/29/19 at 21:00 Dextrose (D50w Syringe) 25 ml Q15M PRN IV DECREASED GLUCOSE; Start 05/29/19 at 21:00 Dextrose (D50w Syringe) 50 ml Q15M PRN IV DECREASED GLUCOSE; Start 05/29/19 at 21:00 Glucagon (Glucagen) 1 mg Q15M PRN IM DECREASED GLUCOSE; Start 05/29/19 at 21:00 Glucose (Glutose) 15 gm Q15M PRN BUCCAL DECREASED GLUCOSE; Start 05/29/19 at 21:00 IV Flush (NS 3 ml) 3 ml PER PROTOCOL IV ; Start 05/29/19 at 21:00 Ondansetron HCl (Zofran Inj) 4 mg Q6H PRN IV NAUSEA/VOMITING Last administered on 05/30/19at 12:25; Admin Dose 4 MG; Start 05/29/19 at 21:00 Acetaminophen (Tylenol Tab) 650 mg Q6H PRN PO .PAIN 1-3 OR TEMP Last administered on 05/31/19 09:41; Admin Dose 650 MG; Start 05/29/19 at 21:00 Docusate Sodium (Colace) 100 mg Q12H PRN PO .CONSTIPATION; Start 05/29/19 at 21:00 Bisacodyl (Dulcolax) 5 mg DAILY PRN PO .CONSTIPATION; Start 05/29/19 at 21:00 Ceftriaxone Sodium 50 ml @ 100 mls/hr Q24H IVPB Last administered on 05/30/19 18:21; Admin Dose 100 MLS/HR; Start 05/30/19 at 19:00 Diagnostic Test (Pha) (Accu-Chek) 1 ea 02 XX Last administered on 05/30/19 02:42; Admin Dose 1 EA; Start 05/30/19 at 02:00 Insulin Aspart (Novolog Insulin Pen) NOVOLOG *MILD* ALGORITHM WITH MEALS BEDTIME SC Last administered on 05/31/19 11:40; Admin Dose 3 UNIT; Start 05/30/19 at 08:00 Atorvastatin Calcium (Lipitor) 40 mg QHS PO Last administered on 05/30/19 20:03; Admin Dose 40 MG; Start 05/30/19 at 21:00 Morphine Sulfate (morphine) 1 mg Q4H PRN IV SEVERE PAIN LEVEL 7-10; Start 05/30/19 at 11:30 Insulin Aspart (Novolog Insulin Pen) 10 unit WITH MEALS SC Last administered on 05/31/19 11:40; Admin Dose 10 UNIT; Start 05/31/19 at 08:00 Insulin Glargine (Lantus) 30 units DAILY@0800 SC Last administered on 05/31/19 09:58; Admin Dose 30 UNITS; Start 05/31/19 at 08:00 TRINA ANN MD May 31, 2019 12:20
[2019-05-31] MEDS: LINAGLIPTIN 5 MG TABLET PO SCH (13:06)
[2019-05-31 15:08] VITALS: BP 123/78; PULSE 84; RESP 18
[2019-05-31] MEDS: GLIMEPIRIDE 2 MG TAB PO SCH (17:10)
[2019-05-31] MEDS: CEFTRIAXONE 1 GM/50 ML (PMX) 50 ML IVPB SCH (18:20)
[2019-05-31 20:00] VITALS: BP 114/65; PULSE 90; RESP 18
[2019-05-31] MEDS: ATORVASTATIN 40 MG TAB PO SCH (20:07)
[2019-05-31] MEDS ORDERED: metFORMIN (XR) 500 MG TAB PO SCH (21:00)
[2019-06-01 00:07] VITALS: BP 107/64; PULSE 95; RESP 19
[2019-06-01] MEDS: ACCU-CHEK XX SCH (02:00)
[2019-06-01 03:37] VITALS: BP 100/59; PULSE 86; RESP 18
[2019-06-01 07:34] VITALS: BP 124/67; PULSE 81; RESP 17
[2019-06-01] MEDS: INSULIN ASPART [NOVOLOG] 3 ML PEN SC SCH ×2 (08:00→12:19)
[2019-06-01] MEDS: GLIMEPIRIDE 2 MG TAB PO SCH (08:05)
[2019-06-01] MEDS: LINAGLIPTIN 5 MG TABLET PO SCH (08:05)
[2019-06-01] MEDS: ACETAMINOPHEN 325 MG TAB PO PRN (11:48)
--- NOTE | 2019-06-01 13:44 | DS ---
Date/Time of Note Date/Time of Note DATE: 06/01/19 TIME: 13:39 Discharge Summary Admission/Discharge Info Admit Date/Time May 29, 2019 at 21:02 Discharge Date/Time June 01, 2019 Discharge Diagnosis Urinary tract infection with left pyelonephritis; diabetes mellitus type 2; obesity; migraine syndrome; hyperlipidemia; fatty liver disease Patient Condition: Good Procedures CT scan abdomen and pelvis MPRESSION: No evidence of urolithiasis, obstructive uropathy, diverticulitis or appendicitis. Enlarged fatty liver. Abdominal ultrasound IMPRESSION: Mild hepatomegaly with diffuse fatty liver. No evidence of gallstones. Hx of Present Illness HPI 43-year-old female with no significant past medical history other than hypertension and diabetes that is poorly controlled with poor compliance with medication regimen. The patient presents with less than 24 hours of symptoms that include nonbloody nonbilious emesis, subjective fevers, generalized malaise and myalgia and mild abdominal cramping diffusely. She notes loose stools yesterday. No recent travel, sick contacts, antibiotics. Hx of Present Illness Chief complaint: Vomiting, fevers and abdominal cramping 43-year-old female with no significant past medical history other than hypertension and diabetes that is poorly controlled with poor compliance with medication regimen. The patient presents with less than 24 hours of symptoms that include nonbloody nonbilious emesis, subjective fevers, generalized malaise and myalgia and mild abdominal cramping diffusely. She notes loose stools yesterday. No recent travel, sick contacts, antibiotics. She does report that she takes metformin but the last time she took it was a few days ago. Hospital Course Kelle 43-year-old female admitted with abnormal urinalysis, nausea vomiting and flank pain. She was admitted to the hospital and placed on antibiotics. Regrettably her urines were not collected and sent to the lab for culture until after she had received antibiotics. Such she is being treated presumptively her blood cultures are negative. She is significantly improved and is now at the point where she is stable for discharge. Please note her s ugars have come into line quite nicely. Home Meds Reported Medications Atorvastatin* (Atorvastatin*) 40 Mg Tablet, 40 MG PO QHS, #30 TAB 05/29/19 Discontinued Reported Medications Cholecalciferol (Vitamin D3) (Vitamin D-3) 2,000 Unit Tablet, 2000 TAB PO DAILY 10/26/18 Metformin* (Glucophage*) 1,000 Mg Tablet, 1000 MG PO BID, #60 TAB 08/30/18 Atorvastatin* (Atorvastatin*) 40 Mg Tablet, 40 MG PO QHS, #30 TAB 08/30/18 Lisinopril* (Lisinopril*) 10 Mg Tablet, 10 MG PO DAILY, #30 TAB 05/09/18 Discontinued Scripts Acyclovir* (Zovirax*) 800 Mg Tablet, 800 MG PO 5 TIMES DAILY for 7 Days, TAB Prov:KATLYN REED MD 02/17/19 Naproxen* (Naprosyn*) 500 Mg Tablet, 500 MG PO BID PRN for PAIN AND/OR INFLAMMATION, #30 TAB Prov:KATLYN REED MD 02/17/19 Tramadol HCl (Tramadol HCl) 50 Mg Tablet, 50 MG PO Q4 PRN for PAIN, #20 TAB Prov:KATLYN REED MD 02/17/19 Naproxen* (Naprosyn*) 500 Mg Tablet, 500 MG PO BID PRN for PAIN AND/OR INFLAMMATION, #30 TAB Prov:JOSE HOWARD PA-C 02/09/19 Metronidazole* (Metrogel* Vaginal) 0.75% -70 Gram Gel.w.appl, 1 APPFUL VAG HS, #1 TUB Prov:MARIVEL HINOJOSA PA-C 12/09/18 Fluconazole* (Diflucan*) 150 Mg Tablet, 150 MG PO ONCE, #1 TAB Prov:MARIVEL HINOJOSA PA-C 12/09/18 Ibuprofen* (Motrin*) 800 Mg Tab, 800 MG PO Q6, #30 TAB Prov:MARIVEL HINOJOSA PA-C 11/13/18 Meclizine Hcl* (Meclizine Hcl*) 25 Mg Tablet, 25 MG PO Q8H PRN for DIZZINESS, #20 TAB Prov:WILLIAM ARANGO MD 08/30/18 Follow-up Plan Primary care physician Dr. Carina Pérez in 1 [address] Provider Dr. Carina Pérez, Thong Avery MD Time spent on discharge: > 30 minutes Pending Labs Laboratory Tests Test 05/31/19 17:07 05/31/19 20:16 06/01/19 00:23 06/01/19 08:08 Bedside 124 97 115 107 Glucose mg/dL (70-220) mg/dL (70-220) mg/dL (70-220) mg/dL (70-220) Test 06/01/19 11:38 06/01/19 11:40 Bedside 223 217 Glucose mg/dL (70-220) mg/dL (70-220) Copies To: CC: CARINA PÉREZ MD ; TRINA ANN MD Jun 01, 2019 13:44
--- NOTE | 2019-06-01 13:45 | PDOCDIS ---
Discharge Instructions DIAGNOSIS Discharge Diagnosis Urinary tract infection with left pyelonephritis; diabetes mellitus type 2; obesity; migraine syndrome; hyperlipidemia; fatty liver disease CONDITION [id number] Patient Condition: [id number] Fair HOME CARE INSTRUCTIONS: [id number] Diet Instructions: [id number] Reduced Calorie ACTIVITY: [id number] Activity Restrictions: [id number] No Restrictions FOLLOW UP/APPOINTMENTS Follow-up Plan Primary care physician Dr. Juan Pérez in 1 week TRINA ANN MD Jun 01, 2019 13:45
[2019-06-01] MEDS ORDERED: FOSFOMYCIN 3 GM PACKET PO SCH (15:00)
== END 2019-06-01 15:09 | disposition home or self-care (01) | DRG 872 ==
LOC: E/R 15:50 → 6WM 21:02 → EDBEDREQ 21:03 → EDBEDREQSVC 21:03 → 6WM 22:30
PROVIDERS: ADMIT Family Medicine; ATTEND Family Medicine
DX: A41.9 Sepsis, unspecified organism (principal); N10 Acute pyelonephritis; E87.2 Acidosis; E11.65 Type 2 diabetes mellitus with hyperglycemia; E78.5 Hyperlipidemia, unspecified; E66.9 Obesity, unspecified; G43.909 Migraine, unspecified, not intractable, without status migrainosus; K76.0 Fatty (change of) liver, not elsewhere classified; Z68.38 Body mass index [BMI] 38.0-38.9, adult; Z79.84 Long term (current) use of oral hypoglycemic drugs
CPT/HCPCS: 36415; 74176; 76705; 80048; 80053; 80061; 81001; 82803; 82962; 83036; 83605; 83690; 83735; 84443; 85025; 87086; 96361; 96372; 96374; 96375; J0696; J1170; J1815; J1885; J2270; J2405; J7030; J7040

== ENCOUNTER 2019-08-29 20:11 | Emergency (ER) | payer BC ==
[~2019-08-29] VITALS: Ht 144.8 cm; Wt 78.8 kg
[~2019-08-29 20:11] MED LIST changes: +ACET500C5 PO; -ACYC800T5 PO; +BENZ1LOZ52 MM; -CHOL200056 PO; -FLUC150T PO; -IBUP800T48 PO; -LISI10TA2 PO; -MECL-77 PO; -METR70GE15 VAG; -MTF1000T PO; -NAPR-985 PO; -TRAM50TA2 PO
[2019-08-29 20:20] VITALS: BP 150/78; PULSE 103; RESP 20; Ht 144.8 cm; Wt 78.8 kg
== END 2019-08-29 23:30 | disposition home or self-care (01) ==
LOC: FTE 20:11
DX: J02.9 Acute pharyngitis, unspecified (principal); E11.9 Type 2 diabetes mellitus without complications; Z79.84 Long term (current) use of oral hypoglycemic drugs
CPT/HCPCS: 36415; 71045; 80048; 81025; 84484; 85025; 93005